=== PATIENT | female | born 1940 | race Caucasian/White ===

== ENCOUNTER 2016-12-18 09:10 | Outpatient (CLI) | payer MEDICARE ==
--- NOTE | 2016-12-18 10:46 | ULT ---
LEFT BREAST ULTRASOUND LEFT DIAGNOSTIC MAMMOGRAM: Date: 12/18/16 HISTORY: 76-year-old female with asymmetry seen in the left breast. COMPARISON: 06/02/16, 05/19/16, 06/12/14. FINDINGS: A ML view of the left breast, as well as spot compression views of the left breast in MLO and CC pro jections were performed. The focal asymmetry in the upper outer aspect of the left breast is unchang ed in size. Vascular calcifications are seen. Scattered fibroglandular breast tissue is present. The re are no suspicious clusters of microcalcifications or areas of architectural distortion. Interpretation of this mammogram was performed with the assistance of computer-aided detection. Targeted ultrasound of the left breast again shows an anechoic, well circumscribed structure in the 2 o'clock position measuring approximately 6.0 mm in greatest dimension. This corresponds to the zuleima mographic abnormality and likely represents a cyst. IMPRESSION: BIRADS 2: Benign Finding(s) Annual screening mammography is recommended. The patient is due for annual mammography in April 24. POS: [facility]
== END 2016-12-18 09:11 | disposition home or self-care (01) ==
LOC: MAMMO 09:10
PROVIDERS: ATTEND Internal Medicine Geriatric Medicine
DX: R92.8 Other abnormal and inconclusive findings on diagnostic imaging of breast (principal)
CPT/HCPCS: 76642; G0206

== ENCOUNTER 2017-01-05 07:38 | Outpatient (CLI) | payer MEDICARE ==
--- NOTE | 2017-01-05 16:52 | NM ---
GASTRIC EMPTYING STUDY 01/05/17 HISTORY: Nausea, vomiting, gas and bloating. RADIOPHARMACEUTICAL: 2 millicuries technetium 99m sulfur colloid mixed in scrambled egg, p.o. FINDINGS: Sequential anterior imaging is obtained. There is 11% emptying at 30 minutes, 45% emptying at 60 min utes, 45% emptying at 2 hours, and 99% emptying at 3 hours. The T is 72 minutes. IMPRESSION: There is 45% emptying at 60 minutes and 2 hours with approximately 99% emptying at 3 hours. POS: [facility]
== END 2017-01-05 07:39 | disposition home or self-care (01) ==
LOC: NM 07:38
PROVIDERS: ATTEND Internal Medicine
DX: K29.60 Other gastritis without bleeding (principal); R10.13 Epigastric pain; R11.0 Nausea
CPT/HCPCS: 78264; A9541

== ENCOUNTER 2018-03-12 07:00 | Day surgery (SDC) | payer MEDICARE ==
[2018-03-11 12:04] VITALS: BMI 32.6
[~2018-03-12 07:00] MED LIST: Prevnar 13-Val Conj/PF 0.5 ML SYRINGE IM ONE
[2018-03-12 08:08] VITALS: BP 123/68; TEMP 98.2
--- NOTE | 2018-03-12 11:42 | RAD ---
LUMBAR MYELOGRAM: HISTORY: Lumbar radiculopathy. COMPARISON: None. EXPOSURE: 0.4 minutes 525.1 Gy per m2. FINDINGS: Initial repair tech lumbar spine radiograph demonstrates five lumbar type vertebral bodies. Of note, the L 5 vertebral body is a transitional vertebral body. In the neutral lateral position, there is 4 mm of anterolisthesis of L4 upon L5. Upon flexion, there is 9 mm of anterolisthesis of L4 upon L5. Upon extension, there is 7 mm of anterolisthesis of L4 upon L5. There is a chronic moderate compression fracture at L1. Mild retropulsion. Successful lumbar myelogram. A total of 9 mL of Isovue-M 200 contrast was administered intrathecally . The patient tolerated the procedure well. No immediate or post procedure complications. TECHNIQUE: Consent obtained to perform a lumbar puncture for intrathecal contrast administration. The patient's back was evaluated. The L3-L4 level was deemed appropriate. The skin was prepped and draped in a s terile fashion. Lidocaine 1% buffered with sodium bicarbonate was used for local anesthesia. Under fluoroscopic guidance, a 22 gauge spinal needle was advanced into the CSF space. The inner stylet wa s removed. There was prompt flow of clear CSF to the hub of the needle. Via a short tubing catheter , a total of 10 mL of Isovue-M 200 contrast was administered intrathecally. The patient tolerated th e procedure well. No immediate or post procedure complications. IMPRESSION: Successful lumbar puncture for lumbar myelogram. POS: [facility]
--- NOTE | 2018-03-12 12:20 | CT ---
POST MYELOGRAM LUMBAR SPINE CT: HISTORY: Lumbar radiculopathy. COMPARISON: None. TECHNIQUE: A post myelogram lumbar spine CT is performed in the axial plane. Reformatted images are submitted f or interpretation. FINDINGS: There is a transitional vertebra at the lumbosacral junction, which will be labeled as the L5 vertebr al body. There is pseudoarthrosis of the left and right transverse process at L5 with the sacral ala . There is a chronic mild compression fracture involving L1 with associated minimal retropulsion. V acuum disk phenomenon at T12-L1, L1-L2, and L2-L3. There is 3.6 mm of retrolisthesis of L1 upon L2. There is 5.7 mm of anterolisthesis of L4 upon L5. Symmetric attenuation of the psoas muscles. Intrinsic hyperdensity involving the right renal cortex, exophytic in nature, measuring 8 mm, is noted. A complex or hemorrhagic renal cortical cyst is favo red. No evidence of obstructive uropathy. The conus medullaris terminates at the T12-L1 disk space level. T11-T12/T12-L1: No high-grade central canal stenosis or high-grade neural foraminal narrowing. L1 VERTEBRAL BODY: Minimal central canal stenosis due to retropulsion. L1-L2: Vacuum disk phenomenon. No significant central canal stenosis. Mild bilateral foraminal oscar rowing. L2-L3: Vacuum disk phenomenon. No significant posterior disk abnormality. No significant central c anal stenosis. Mild bilateral foraminal narrowing. L3-L4: No significant posterior disk abnormality. There is a left subarticular disk bulge that abut s the thecal sac and minimally displaces the traversing left L4 nerve root. No significant central c anal stenosis. Mild bilateral foraminal narrowing. L4-L5: There appears to be ligamentum flavum thickening, facet hypertrophy, and a generalized disk b ulge. There is resultant mild central canal stenosis. Mild to moderate bilateral neural foraminal n arrowing. L5-S1: No high-grade central canal stenosis or high-grade foraminal narrowing. Tarlov cyst along the left S2 nerve root is suspected and incompletely evaluated. IMPRESSION: 1. Degenerative changes of the lumbar spine as above. Varying degrees of central canal stenosis and foraminal narrowing, as above. 2. Disk material abuts but not completely obscure the traversing left L4 nerve root. 3. Mild chronic compression fracture at L1. 4. 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 POS: [facility]
== END 2018-03-12 09:45 | disposition home or self-care (01) ==
LOC: RAD 07:00
PROVIDERS: ATTEND Neurological Surgery
PROC: B01B1ZZ Fluoroscopy of Spinal Cord using Low Osmolar Contrast (ICD-10-PCS; principal; 2018-03-12)
DX: M51.16 Intervertebral disc disorders with radiculopathy, lumbar region (principal); M48.061 Spinal stenosis, lumbar region without neurogenic claudication; S32.018A Other fracture of first lumbar vertebra, initial encounter for closed fracture; I25.10 Atherosclerotic heart disease of native coronary artery without angina pectoris; I48.91 Unspecified atrial fibrillation; E11.9 Type 2 diabetes mellitus without complications; I10 Essential (primary) hypertension; E78.5 Hyperlipidemia, unspecified; Z79.899 Other long term (current) drug therapy; Z79.02 Long term (current) use of antithrombotics/antiplatelets; Z79.82 Long term (current) use of aspirin; Z88.0 Allergy status to penicillin; Z88.2 Allergy status to sulfonamides; Z88.5 Allergy status to narcotic agent; Z88.8 Allergy status to other drugs, medicaments and biological substances
CPT/HCPCS: 62304; 72100; 72132

== ENCOUNTER 2018-04-19 05:55 | Inpatient (IN) | payer MEDICARE ==
[2018-04-16 12:54] VITALS: BMI 34.4
[2018-04-19] MEDS ORDERED: Levofloxacin 500 mg/D5W 100 ml Premix Bag ONE (06:28)
[2018-04-19] MEDS ORDERED: Clindamycin/D5W 900 mg/50 ml Premix Bag ONE (06:28)
[2018-04-19] MEDS ORDERED: Fentanyl 100 MCG/2 ML VIAL ONE ×4 (06:30→12:14)
[2018-04-19] MEDS ORDERED: Sodium Chloride 0.9% 0 ML ONE (06:31)
[2018-04-19] MEDS ORDERED: Sodium Chloride 0.9% 10 ML ONE (06:32)
[2018-04-19 06:43] LABS: Mean Corpuscular HGB CONC 33.2 g/dL (32.0-36.0); Mean Corpuscular Hemoglobin 30.1 pg (27.0-31.0); Mean Corpuscular Volume 90.7 fL (78.0-98.0); Platelet Count 185 thou/uL (130-400); RBC Distribution Width 12.2 % (11.5-14.5); Red Blood Cell (RBC) Count 4.33 mill/uL (4.20-5.40)
[2018-04-19 07:03] LABS: Anion Gap 12 mmol/L (10-20); BUN (Urea Nitrogen) 21 mg/dL (9.8-20.1); Calc. Creatinine Clearance 65 mL/min (70-130); Calcium 9.6 mg/dL (7.8-10.44); Carbon Dioxide 28 mmol/L (23-31); Chloride 103 mmol/L (98-107); Estimated GFR-MDRD 46; Glucose 175 mg/dL (83-110); Potassium 3.9 mmol/L (3.5-5.1); Sodium 139 mmol/L (136-145)
[2018-04-19] MEDS ORDERED: Promethazine HCl 25 MG/ML VIAL SLOW IVP PRN (09:03)
[2018-04-19] MEDS ORDERED: Ondansetron HCl/PF 4 MG/2 ML Vial IVP PRN (09:03)
[2018-04-19] MEDS ORDERED: Promethazine HCl 25 MG/ML VIAL IM PRN ×2 (09:03→16:48)
--- NOTE | 2018-04-19 10:18 | OP ---
DATE OF PROCEDURE: 04/19/2018 ASSISTANT STATISTICIAN: Brian Fraser PA-C PROCEDURES PERFORMED: L4-L5 laminectomy, L4-L5 posterolateral arthrodesis, pedicle screw instrumentation, demineralized bone matrix, local morselized autograft, posterolateral arthrodesis, L4-L5. DESCRIPTION OF PROCEDURE: The patient was brought to the operating room and intubated. She was rolled in a prone position on gel-filled chest rolls. Incision was made exposing L4-L5 bilateral and the level was confirmed by x-ray for modified lateral facetectomy and laminectomy. We placed pedicle screws bilaterally at L4 and L5 using lateral fluoroscopic guidance and position was confirmed with x-ray. Maksim was secured between the screws, connected by nuts, which were finally tightened. The wound was then extensively irrigated and maximum hemostasis was secured. Combination of demineralized bone matrix and local morselized autograft was laid over the lamina on posterolateral surfaces for the purpose of arthrodesis. Vancomycin powder was applied and the wound was then closed in anatomic layers. Job ID: [id number]
[2018-04-19] MEDS ORDERED: ePHEDrine/0.9% NaCl/PF SYRINGE 50 mg/10 ml ONE (13:38)
[2018-04-19] MEDS ORDERED: PROPOFOL 200 MG/20 ML VIAL ONE (13:38)
[2018-04-19] MEDS ORDERED: Rocuronium Bromide 10 MG/ML (10ML VIAL) ONE (13:38)
[2018-04-19] MEDS ORDERED: Glycopyrrolate 0.2 MG/ML 5 ML SYRINGE ONE (13:38)
[2018-04-19] MEDS ORDERED: Dexamethasone 20 MG/5 ML VIAL ONE (13:38)
[2018-04-19] MEDS ORDERED: Lidocaine 1% PF 5 ML VIAL ONE (13:38)
[2018-04-19] MEDS ORDERED: PHENYLEPHRINE-NS 100 MCG/ML 10 ML SYRINGE ONE (13:38)
[2018-04-19] MEDS ORDERED: Ondansetron PF 4 MG/2 ML Vial ONE (13:38)
[2018-04-19] MEDS ORDERED: Pentazocine HCl/Naloxone HCl 50/0.5 MG TAB PO PRN (16:20)
[2018-04-19] MEDS: Cyclobenzaprine 10 MG TAB PO PRN (16:34)
[2018-04-19] MEDS ORDERED: Milk Of Magnesia 30 ML UDCUP PO PRN (16:48)
[2018-04-19] MEDS ORDERED: tiZANidine HCl 4 MG TAB PO PRN (16:48)
[2018-04-19] MEDS ORDERED: Promethazine 25 MG TAB PO PRN (16:48)
[2018-04-19] MEDS ORDERED: Promethazine HCl 12.5 MG SUPP PR PRN (16:48)
[2018-04-19] MEDS ORDERED: diphenhydrAMINE 50 MG/ML VIAL IVP PRN (16:48)
[2018-04-19] MEDS ORDERED: Bisacodyl 10 MG SUPP PR PRN (16:48)
[2018-04-19] MEDS ORDERED: diphenhydrAMINE 25 MG CAP PO PRN (16:48)
[2018-04-19] MEDS ORDERED: Morphine 4 MG/ML VIAL SLOW IVP PRN ×2 (16:48→17:01)
[2018-04-19] MEDS ORDERED: Ondansetron PF 4 MG/2 ML Vial IVP PRN (16:49)
[2018-04-19] MEDS ORDERED: HYDROcodone/Acetaminophen 10/325 mg Tablet PO PRN ×2 (17:02)
[2018-04-19] MEDS: Clindamycin/D5W 900 MG in Premix Bag 1 BAG IVPB SCH (17:32)
[2018-04-19] MEDS: Sodium Chloride 0.9% 1,000 ML IV SCH (18:01)
[2018-04-19] MEDS: diphenhydrAMINE 50 MG CAP PO PRN (18:27)
[2018-04-19] MEDS: Pentazocine HCl/Naloxone HCl 50/0.5 MG TAB PO PRN (18:50)
[2018-04-19] MEDS ORDERED: Dextrose 50% Abboject 50 ML SYRINGE SLOW IVP PRN (19:05)
[2018-04-19] MEDS ORDERED: Dextrose 5% in Water 1,000 ML IV PRN (19:05)
[2018-04-19] MEDS ORDERED: Gabapentin 300 MG CAP PO SCH (21:00)
[2018-04-19] MEDS: FLUoxetine HCl 20 MG CAP PO SCH (21:21)
[2018-04-19] MEDS: Famotidine 20 MG TAB PO SCH (21:21)
[2018-04-19] MEDS: Carvedilol 25 MG TAB PO SCH (21:21)
[2018-04-19] MEDS: Pramipexole Di-HCl 0.25 MG TAB PO SCH (21:21)
[2018-04-19] MEDS: Gabapentin 300 MG CAP PO SCH (21:21)
[2018-04-19] MEDS: Lisinopril 10 MG TAB PO SCH (21:22)
[2018-04-19] MEDS: HumaLOG 300 UNITS/3 ML VIAL SC PRN (21:32)
[2018-04-20] MEDS: Clindamycin/D5W 900 MG in Premix Bag 1 BAG IVPB SCH (01:24)
--- NOTE | 2018-04-20 01:31 | CON ---
DATE OF CONSULTATION: 04/19/2018 PRIMARY CARE PHYSICIAN: Dr. Naveed Edgar. PRIMARY TEAM: Neurosurgery, Dr. Rios. REASON FOR CONSULTATION: Medical management. HISTORY OF PRESENT ILLNESS: This is a 77-year-old white female with a known history of coronary artery disease, hypertension, mild aortic stenosis, who has been having worsening symptoms from her lumbar spine disease and Dr. Rios had her cleared cardiologically with a catheterization by Dr. Mariano and then brought her in today and did a decompressive surgery on her lumbar spine. She is doing well postoperatively, does have some pain and has some difficulties with most pain medications just can only take Talwin with them, has taken lots of Benadryl with it, but she does say she is able to move her legs now better than before the surgery. PAST MEDICAL HISTORY: 1. Coronary artery disease, 3-vessel disease. 2. Hypertension. 3. Sick sinus syndrome status post pacemaker. 4. Mild aortic stenosis. 5. Left bundle branch block and first-degree AV block. 6. Sleep apnea. 7. Osteoarthritis. 8. Diabetes mellitus, type 2. 9. Obesity. PAST PSYCHIATRIC HISTORY: Anxiety and depression. PAST SURGICAL HISTORY: 1. Hysterectomy. 2. Abdominal adhesiolysis. 3. Cataract removal. 4. Pacemaker placement in 2012. 5. Multiple coronary caths with mid LAD stents x2 with angioplasty of in-stent restenosis, last in 2017. 6. Knee surgery. SOCIAL HISTORY: The patient is . She is employed in the [employer]. No tobacco, alcohol, or illicit drug use. FAMILY HISTORY: Father at age 65 of a heart attack and mother at age 87 of organ failure. ALLERGIES: 1. CODEINE AND MOST OPIATES WHICH CAUSE SEVERE ITCHING. 2. PENICILLINS. 3. SULFONAMIDES. 4. FELODIPINE CAUSES SWELLING. 5. BRILINTA CAUSES SHORTNESS OF BREATH. 6. LIZZETTE INHIBITORS. 7. TRAMADOL. CURRENT MEDICATIONS: 1. Multivitamin daily. 2. Talwin NX one tablet every 8 hours as needed for pain. 3. Benadryl 50 mg every 4-6 hours as needed for itching from her Talwin. 4. Potassium chloride 10 mEq daily. 5. Pramipexole 0.25 mg at night. 6. Aspirin 325 mg daily. 7. Combigan eyedrops 10 mL ophthalmic daily. 8. Plavix 75 mg daily. 9. Lisinopril 10 mg twice a day. The patient reports that even though this is an LIZZETTE inhibitor, it seems to work fine for her, uncertain what the reaction was to other LIZZETTE inhibitors. 10. Amlodipine 5 mg daily. 11. Carvedilol 25 mg twice a day. 12. Prozac 40 mg at night. 13. Furosemide 20 mg daily. 14. Neurontin 300 mg 3 times a day. 15. Imdur ER 45 mg daily. 16. Cyclobenzaprine 5 mg 3 times a day as needed. REVIEW OF SYSTEMS: CONSTITUTIONAL: No fevers, no chills. No weight changes. EYES: No double vision or blurred vision. ENT: No congestion or sore throat. She does have some intermittent sinus drainage. CARDIOVASCULAR: No chest pain or palpitations. PULMONARY: She has intermittent cough from the drainage at the back of her throat, but no wheezing. No chest tightness. No trouble breathing. GASTROINTESTINAL: No abdominal pain. No nausea or vomiting. No diarrhea or constipation. GENITOURINARY: No dysuria or hematuria. MUSCULOSKELETAL: The patient has low back pain with pain shooting down her right leg as per HPI. No other musculoskeletal complaints. She has noted some left lower extremity swelling over the last few months since her back got real bad, but this has had negative ultrasounds for any sort of clot. SKIN: No rashes or other lesions that she has noticed. NEUROLOGIC: No numbness, tingling, or focal weakness. PHYSICAL EXAMINATION: VITAL SIGNS: Blood pressure 160/76, pulse 76, respirations 18, temperature 98.1, O2 saturation 96% on room air. GENERAL: This is a well-developed, obese white female, in no acute distress. HEENT: Pupils are equal, round, and reactive to light. Oropharynx is clear without lesions, erythema, or exudate. NECK: Supple. No lymphadenopathy. No thyroid nodules or enlargement. No JVD. HEART: Regular rate and rhythm. No murmurs, rubs, or gallops. LUNGS: Clear to auscultation bilaterally. No wheezes, crackles, or rhonchi. ABDOMEN: Soft, obese, nontender to palpation. Normoactive bowel sounds. No hepatosplenomegaly or other masses. EXTREMITIES: I did not appreciate any clubbing, cyanosis, or edema on my exam. She has good peripheral pulses. SKIN: No rashes or other lesions noted. NEUROLOGIC: She has intact sensation and movement in all extremities. No facial droop. PSYCHIATRIC: Alert, orient x3. Normal mood and affect. LABORATORY DATA: CBC within normal limits. Basic metabolic panel was notable for creatinine of 1.15 which is up from her most recent one we have before that was from 2017 when it was normal. BUN is elevated at 21. ASSESSMENT: 1. Symptomatic lumbar spine disease, status post decompressive surgery by Dr. Rios. 2. Hypertension. Currently well elevated possibly from pain. We will resume patient's home medications. We will give p.r.n. blood pressure medicine as needed. 3. Coronary artery disease. We are holding the aspirin and Plavix for now. We will resume when okay with Neurosurgery. 4. Gastrointestinal prophylaxis. We will put the patient on Pepcid twice a day. 5. Itching from Talwin. We will continue Benadryl. We may have to give a little more than often than q.6 hours as currently written, but we will wait and see how she does. 6. Deep venous thrombosis prophylaxis. We will put the patient on SCDs, bilateral lower extremities. 7. Diabetes mellitus, type 2. We will check fingerstick blood sugars before meals and at bedtime with low insulin sliding scale and give her a diabetic diet. 8. Code status. I did discuss this with the patient. She is a full code. Should she be incapacitated, she stated that her daughter would be her medical decision maker. Her daughter's name is Harry Wu. Job ID: [id number]
[2018-04-20] MEDS: Cyclobenzaprine 10 MG TAB PO PRN ×3 (03:51→21:45)
[2018-04-20] MEDS: Pentazocine HCl/Naloxone HCl 50/0.5 MG TAB PO PRN ×3 (03:52→21:45)
[2018-04-20] MEDS: Sodium Chloride 0.9% 1,000 ML IV SCH ×2 (06:00→18:48)
[2018-04-20] MEDS: HumaLOG 300 UNITS/3 ML VIAL SC PRN ×4 (06:06→21:45)
--- NOTE | 2018-04-20 07:20 | PRG ---
DATE OF SERVICE: 04/20/2018 SUBJECTIVE: The patient is a 77-year-old female, on postoperative day #1, status post L4-5 decompression and fusion. Following surgery, she was transitioned to the Med/Surg floor, where her pain has been well controlled with p.o. medications, she is tolerating regular diet, and she is voiding appropriately. She has been up ambulating short distances to the bathroom. She did have some mild amount of bloody drainage through her initial dressing, which required replacement by the nursing staff. The patient is awake, alert, and sitting up this morning. She appears comfortable. She has free active range of motion of all extremities. No focal motor weakness or reflex asymmetry. She has a negative straight leg raise. Her new dressing is dry, and there is only a small amount of bloody drainage on the pad. The patient appears to be doing well postoperatively. We will have her work with Physical Therapy and Occupational Therapy today. Depending on her progress, she may require inpatient rehabilitation versus home with Home Health in the future. Job ID: [id number]
--- NOTE | 2018-04-20 08:10 | PDOC.PN ---
- Subjective Encounter Start Date: 04/20/18 Encounter Start Time: 09:50 Subjective: No Chest pain. No SOB. Up with PT. - Objective MAR Reviewed: Yes Vital Signs & Weight: Vital Signs (12 hours) Temp Pulse Resp BP BP Pulse Ox 04/20/18 07:31 98.5 F 78 18 160/71 H 94 L 04/20/18 03:52 98.6 F 77 16 137/71 95 04/19/18 23:30 99.8 F H 88 20 150/72 H 95 04/19/18 21:22 148/74 H 04/19/18 21:21 95 Weight Weight 220 lb I&O: 04/19/18 04/20/18 04/21/18 06:59 06:59 06:59 Intake Total 580 Balance 580 Result Diagrams: 04/19/18 06:36 04/19/18 06:36 Additional Labs: Accuchecks 04/20/18 04/19/18 06:03 21:06 POC Glucose 209 H 303 H Phys Exam - Physical Examination Constitutional: NAD HEENT: moist MMs Respiratory: no wheezing, no rales, no rhonchi Cardiovascular: RRR, no significant murmur Gastrointestinal: soft, positive bowel sounds Musculoskeletal: no edema Neurological: non-focal, moves all 4 limbs Psychiatric: normal affect, A&O x 3 Dx/Plan (1) S/P lumbar laminectomy Code(s): Z98.890 - OTHER SPECIFIED POSTPROCEDURAL STATES Status: Acute (2) CAD (coronary artery disease) Code(s): I25.10 - ATHSCL HEART DISEASE OF [place] CORONARY ARTERY W/O ANG PCTRS Status: Chronic Qualifiers: Coronary Disease-Associated Artery/Lesion type: [place] artery (3) DM type 2 (diabetes mellitus, type 2) Status: Chronic Comment: Running a bit high, patient reports BS typically less than 120 at home. (4) HTN (hypertension) Code(s): I10 - ESSENTIAL (PRIMARY) HYPERTENSION Status: Chronic Qualifiers: Hypertension type: essential hypertension Qualified Code(s): I10 - Essential (primary) hypertension Comment: Running a little high - Plan cont current plan of care, PT/OT To rehab vs. home depending on progress with PT * . - Discharge Day Encounter end time: 10:00
[2018-04-20] MEDS: Lisinopril 10 MG TAB PO SCH ×2 (09:13→20:36)
[2018-04-20] MEDS: Gabapentin 300 MG CAP PO SCH ×3 (09:13→20:35)
[2018-04-20] MEDS: Potassium Chloride 10 MEQ TAB PO SCH (09:13)
[2018-04-20] MEDS: Famotidine 20 MG TAB PO SCH ×2 (09:13→20:35)
[2018-04-20] MEDS: Multivit, Therapeutic 1 TAB PO SCH (09:13)
[2018-04-20] MEDS: Carvedilol 25 MG TAB PO SCH ×2 (09:14→20:35)
[2018-04-20] MEDS: Amlodipine 5 MG TAB PO SCH (09:14)
[2018-04-20] MEDS: Furosemide 20 MG TAB PO SCH (09:14)
[2018-04-20] MEDS: Timolol 0.5% Ophth Soln 5 ml Bottle EA EYE SCH (09:14)
[2018-04-20] MEDS: Brimonidine Tartrate 0.2% Ophth Soln 5 ml Bottle EA EYE SCH (09:15)
[2018-04-20] MEDS: Ketorolac Tromethamine 30 MG/ML VIAL IVP PRN ×2 (10:34→17:50)
--- NOTE | 2018-04-20 12:53 | PRG ---
DATE OF SERVICE: 04/20/2018 Ms. Madrid is doing quite well postoperatively. She has a substantial improvement in her leg pain. Her postoperative back pain is relatively manageable. She is working on progressive mobilization and working with physical therapy. Rehab screen has been ordered. Job ID: [id number]
[2018-04-20] MEDS: diphenhydrAMINE 50 MG CAP PO PRN ×2 (13:26→21:45)
[2018-04-20] MEDS: Clindamycin 150 MG CAP PO SCH ×2 (17:50→23:28)
[2018-04-20] MEDS: Pramipexole Di-HCl 0.25 MG TAB PO SCH (20:35)
[2018-04-20] MEDS: FLUoxetine HCl 20 MG CAP PO SCH (20:35)
[2018-04-21] MEDS: Clindamycin 150 MG CAP PO SCH ×4 (05:17→23:09)
[2018-04-21] MEDS: HumaLOG 300 UNITS/3 ML VIAL SC PRN ×3 (05:31→18:11)
[2018-04-21 06:18] LABS: #Eosinphils 0.1 thou/uL (0.0-0.7); #Lymphocytes 1.6 thou/uL (1.20-3.40); #Monocytes 1.1 thou/uL (0.11-0.59); #Neutrophils 6.4 thou/uL (1.40-6.50); %Basophils 0.5 % (0.0-1.0); %Eosinophils 1.5 % (0.0-10.0); %Lymphocytes 16.8 % (21.0-51.0); %Monocytes 12.1 % (0.0-10.0); %Neutrophils 69.2 % (42.0-75.0); Hemoglobin 11.3 g/dL (12.0-16.0); Mean Corpuscular HGB CONC 32.7 g/dL (32.0-36.0); Mean Corpuscular Hemoglobin 30.2 pg (27.0-31.0); Mean Corpuscular Volume 92.5 fL (78.0-98.0); Mean Platelet Volume 7.7 fL (7.4-10.4); Platelet Count 149 thou/uL (130-400); RBC Distribution Width 12.3 % (11.5-14.5); Red Blood Cell (RBC) Count 3.74 mill/uL (4.20-5.40); White Blood Cell (WBC) Count 9.2 thou/uL (4.8-10.8)
[2018-04-21 06:37] LABS: Anion Gap 15 mmol/L (10-20); BUN (Urea Nitrogen) 23 mg/dL (9.8-20.1); Calc. Creatinine Clearance 59 mL/min (70-130); Calcium 8.9 mg/dL (7.8-10.44); Carbon Dioxide 26 mmol/L (23-31); Chloride 99 mmol/L (98-107); Estimated GFR-MDRD 41; Glucose 172 mg/dL (83-110); Potassium 3.8 mmol/L (3.5-5.1); Sodium 136 mmol/L (136-145)
--- NOTE | 2018-04-21 07:51 | PDOC.PN ---
- Subjective Encounter Start Date: 04/21/18 Encounter Start Time: 10:00 Subjective: Back sore, but pain improved and leg pain resolved. No other -: complaints. - Objective MAR Reviewed: Yes Vital Signs & Weight: Vital Signs (12 hours) Temp Pulse Resp BP BP Pulse Ox 04/21/18 04:40 100 F H 76 17 145/66 H 94 L 04/21/18 00:22 101 F H 77 18 108/57 L 94 L 04/20/18 20:36 114/63 04/20/18 20:00 99.1 F 69 19 114/63 94 L Weight Weight 220 lb I&O: 04/20/18 04/21/18 04/22/18 06:59 06:59 06:59 Intake Total 580 410 Balance 580 410 Result Diagrams: 04/21/18 05:23 04/21/18 05:23 Additional Labs: Accuchecks 04/21/18 04/20/18 04/20/18 05:24 20:52 15:23 POC Glucose 189 H 251 H 209 H 04/20/18 11:31 POC Glucose 234 H Phys Exam - Physical Examination Constitutional: NAD HEENT: moist MMs Respiratory: no wheezing, no rales, no rhonchi Cardiovascular: RRR Gastrointestinal: soft, positive bowel sounds Musculoskeletal: no edema Neurological: non-focal, moves all 4 limbs Psychiatric: normal affect, A&O x 3 Dx/Plan (1) S/P lumbar laminectomy Code(s): Z98.890 - OTHER SPECIFIED POSTPROCEDURAL STATES Status: Acute (2) CAD (coronary artery disease) Code(s): I25.10 - ATHSCL HEART DISEASE OF [place] CORONARY ARTERY W/O ANG PCTRS Status: Chronic Qualifiers: Coronary Disease-Associated Artery/Lesion type: [place] artery (3) DM type 2 (diabetes mellitus, type 2) Status: Chronic Comment: Running a bit high, patient reports BS typically less than 120 at home. (4) HTN (hypertension) Code(s): I10 - ESSENTIAL (PRIMARY) HYPERTENSION Status: Chronic Qualifiers: Hypertension type: essential hypertension Qualified Code(s): I10 - Essential (primary) hypertension Comment: Running a little high (5) Chronic renal failure, stage 2 (mild) Code(s): N18.2 - CHRONIC KIDNEY DISEASE, STAGE 2 (MILD) Status: Acute Comment: a little bump in creatinine post op, will follow, encourage po fluids - Plan cont current plan of care, PT/OT to rehab * . - Discharge Day Encounter end time: 10:10
[2018-04-21] MEDS: Multivit, Therapeutic 1 TAB PO SCH (08:22)
[2018-04-21] MEDS: Carvedilol 25 MG TAB PO SCH ×2 (08:22→20:26)
[2018-04-21] MEDS: Gabapentin 300 MG CAP PO SCH ×3 (08:22→20:26)
[2018-04-21] MEDS: Furosemide 20 MG TAB PO SCH (08:23)
[2018-04-21] MEDS: Amlodipine 5 MG TAB PO SCH (08:23)
[2018-04-21] MEDS: Brimonidine Tartrate 0.2% Ophth Soln 5 ml Bottle EA EYE SCH (08:23)
[2018-04-21] MEDS: Lisinopril 10 MG TAB PO SCH ×2 (08:23→20:26)
[2018-04-21] MEDS: Famotidine 20 MG TAB PO SCH ×2 (08:23→20:26)
[2018-04-21] MEDS: Potassium Chloride 10 MEQ TAB PO SCH (08:23)
[2018-04-21] MEDS: Timolol 0.5% Ophth Soln 5 ml Bottle EA EYE SCH (08:24)
[2018-04-21] MEDS: Cyclobenzaprine 10 MG TAB PO PRN ×2 (08:25→18:10)
[2018-04-21] MEDS: Sodium Chloride 0.9% 1,000 ML IV SCH ×2 (08:36→23:25)
--- NOTE | 2018-04-21 09:54 | RAD ---
PA AND LATERAL CHEST: History: Fever, cough. Comparison: 09-29-07 FINDINGS: Heart size is within normal limits. Pacemaker is present. Linear scarring in the right upper lobe. Th ere is elevation of the right hemidiaphragm. No focal infiltrative process. IMPRESSION: No active intrathoracic disease. POS: [facility]
[2018-04-21 11:43] LABS: Bilirubin Negative (Negative); Blood, Urine Trace (Negative); Clarity CLEAR (Clear); Glucose, Urine (Dipstick) Negative (Negative); Leukocyte Trace (Negative); Nitrite Negative (Negative); Protein, Urine (Dipstick) Negative (Neg-Trace); Specific Gravity, Urine 1.014 (1.002-1.036); Urobilinogen 0.2 mg/dL (0.2-1.0); pH, Urine 5.5 (5.0-9.0)
[2018-04-21 11:46] LABS: Bacteria/HPF None Seen HPF (None Seen); Hyaline Casts/LPF 0-3 HYALINE CAST LPF (0-3 Hyaline); Pathc Cast-AUWi Flag 0.14 (0-2.49); RBC/HPF 0-3 HPF (0-3); Squamous Epithelial 0-3 HPF (0-3)
[2018-04-21 11:47] LABS: Yeast-AUWi Flag 36.9 (0-25.0)
[2018-04-21 12:07] LABS: Yeast-All Forms Rare HPF (None Seen)
[2018-04-21] MEDS: Mag-Al 1200 mg/1200 mg/30 ML UDCUP PO PRN ×2 (12:16→18:32)
--- NOTE | 2018-04-21 12:27 | ULT ---
BILATERAL LOWER EXTREMITY VENOUS DOPPLER ULTRASOUND: Date: 04/21/18 HISTORY: Two days post laminectomy. Immobility. TECHNIQUE: Lilly scale ultrasound with color flow and spectral Doppler imaging of the deep venous systems of the lower extremities was performed bilaterally. FINDINGS: There is good flow, compression, and augmentation noted in the common femoral, femoral, deep femoral, popliteal, posterior tibial, and greater saphenous veins on either side. IMPRESSION: No evidence of deep venous thrombosis in either lower extremity. POS: [facility]
[2018-04-21] MEDS: Ketorolac Tromethamine 30 MG/ML VIAL IVP PRN (13:58)
[2018-04-21] MEDS: Pramipexole Di-HCl 0.25 MG TAB PO SCH (20:26)
[2018-04-21] MEDS: FLUoxetine HCl 20 MG CAP PO SCH (20:26)
[2018-04-22] MEDS: Clindamycin 150 MG CAP PO SCH ×2 (05:08→11:45)
[2018-04-22] MEDS: Carvedilol 25 MG TAB PO SCH (08:45)
[2018-04-22] MEDS: Multivit, Therapeutic 1 TAB PO SCH (08:46)
[2018-04-22] MEDS: Lisinopril 10 MG TAB PO SCH (08:47)
[2018-04-22] MEDS: Potassium Chloride 10 MEQ TAB PO SCH (08:47)
[2018-04-22] MEDS: Gabapentin 300 MG CAP PO SCH (08:47)
[2018-04-22] MEDS: Furosemide 20 MG TAB PO SCH (08:48)
[2018-04-22] MEDS: Amlodipine 5 MG TAB PO SCH (08:48)
[2018-04-22] MEDS: Famotidine 20 MG TAB PO SCH (08:48)
[2018-04-22] MEDS: Brimonidine Tartrate 0.2% Ophth Soln 5 ml Bottle EA EYE SCH (08:49)
[2018-04-22] MEDS: Timolol 0.5% Ophth Soln 5 ml Bottle EA EYE SCH (08:49)
[2018-04-22] MEDS: Cyclobenzaprine 10 MG TAB PO PRN (09:20)
--- NOTE | 2018-04-22 09:27 | PDOC.PN ---
- Subjective Encounter Start Date: 04/22/18 Encounter Start Time: 12:40 Subjective: Patient doing well postop. Ambulating better. Some reflux since -: intubation. - Objective MAR Reviewed: Yes Vital Signs & Weight: Vital Signs (12 hours) Temp Pulse Resp BP BP Pulse Ox 04/22/18 08:49 81 150/64 H 04/22/18 08:48 81 150/64 H 04/22/18 08:47 150/64 H 04/22/18 07:48 100.1 F H 81 16 150/64 H 93 L 04/22/18 04:25 99.1 F 81 20 162/75 H 95 04/22/18 00:14 98.8 F 77 20 149/67 H 94 L Weight Weight 220 lb I&O: 04/21/18 04/22/18 04/23/18 06:59 06:59 06:59 Intake Total 410 510 Balance 410 510 Result Diagrams: 04/21/18 05:23 04/21/18 05:23 Additional Labs: Accuchecks 04/22/18 04/21/18 04/21/18 05:53 21:17 16:18 POC Glucose 189 H 180 H 198 H Phys Exam - Physical Examination Constitutional: NAD HEENT: moist MMs Respiratory: no wheezing, no rales, no rhonchi Cardiovascular: RRR, no significant murmur Gastrointestinal: soft, non-tender, positive bowel sounds Neurological: non-focal, moves all 4 limbs Psychiatric: normal affect, A&O x 3 Dx/Plan (1) S/P lumbar laminectomy Code(s): Z98.890 - OTHER SPECIFIED POSTPROCEDURAL STATES Status: Acute (2) CAD (coronary artery disease) Code(s): I25.10 - ATHSCL HEART DISEASE OF [place] CORONARY ARTERY W/O ANG PCTRS Status: Chronic Qualifiers: Coronary Disease-Associated Artery/Lesion type: [place] artery (3) DM type 2 (diabetes mellitus, type 2) Status: Chronic Comment: Running a bit high, patient reports BS typically less than 120 at home. (4) HTN (hypertension) Code(s): I10 - ESSENTIAL (PRIMARY) HYPERTENSION Status: Chronic Qualifiers: Hypertension type: essential hypertension Qualified Code(s): I10 - Essential (primary) hypertension Comment: Running a little high, recommend f/u with PCP and increase meds if still running high after finishes rehab (5) Chronic renal failure, stage 2 (mild) Code(s): N18.2 - CHRONIC KIDNEY DISEASE, STAGE 2 (MILD) Status: Acute Comment: a little bump in creatinine post op, encourage po fluids (6) Acid reflux Code(s): K21.9 - GASTRO-ESOPHAGEAL REFLUX DISEASE WITHOUT ESOPHAGITIS Status: Acute Comment: switch to protonix, give for 2 weeks - Plan cont current plan of care, PT/OT to rehab today * . - Discharge Day Encounter end time: 12:50
[2018-04-22 11:18] VITALS: BP 140/75; TEMP 98.8
[2018-04-22] MEDS: HumaLOG 300 UNITS/3 ML VIAL SC PRN (11:45)
[2018-04-22] MEDS: Sodium Chloride 0.9% 1,000 ML IV SCH (11:45)
== END 2018-04-22 13:30 | DRG 460 ==
LOC: SURG A 05:55 → EDSTATUS 11:06 → SURG A 11:49
PROVIDERS: ADMIT Neurological Surgery; ATTEND Neurological Surgery
PROC: 0SG0071 Fusion of Lumbar Vertebral Joint with Autologous Tissue Substitute, Posterior Approach, Posterior Column, Open Approach (ICD-10-PCS; principal; 2018-04-19)
DX: M48.061 Spinal stenosis, lumbar region without neurogenic claudication (principal); M43.16 Spondylolisthesis, lumbar region; M51.36 Other intervertebral disc degeneration, lumbar region; I25.10 Atherosclerotic heart disease of native coronary artery without angina pectoris; I48.91 Unspecified atrial fibrillation; E78.5 Hyperlipidemia, unspecified; M19.90 Unspecified osteoarthritis, unspecified site; G47.30 Sleep apnea, unspecified; E66.9 Obesity, unspecified; F41.9 Anxiety disorder, unspecified; F32.9 Major depressive disorder, single episode, unspecified; L29.9 Pruritus, unspecified; E11.22 Type 2 diabetes mellitus with diabetic chronic kidney disease; T40.4X5A Adverse effect of other synthetic narcotics, initial encounter; N18.2 Chronic kidney disease, stage 2 (mild); I12.9 Hypertensive chronic kidney disease with stage 1 through stage 4 chronic kidney disease, or unspecified chronic kidney disease; Z95.0 Presence of cardiac pacemaker; Z90.710 Acquired absence of both cervix and uterus; Z98.49 Cataract extraction status, unspecified eye; Z98.61 Coronary angioplasty status; Z88.0 Allergy status to penicillin; Z88.2 Allergy status to sulfonamides; Z88.5 Allergy status to narcotic agent; Z88.8 Allergy status to other drugs, medicaments and biological substances; Z79.02 Long term (current) use of antithrombotics/antiplatelets; Z79.82 Long term (current) use of aspirin; Z79.899 Other long term (current) drug therapy; Z98.890 Other specified postprocedural states; Z68.34 Body mass index [BMI] 34.0-34.9, adult
CPT/HCPCS: 36415; 36416; 71046; 76000; 80048; 81001; 85025; 85027; 87040; 87086; 93970; C1713; C1768; J0131; J1100; J1885; J1956; J2001; J2405; J2704; J3010; J3370; J3490; Q0163

== ENCOUNTER 2018-05-05 16:09 | Outpatient (CLI) | payer MEDICARE ==
--- NOTE | 2018-05-05 16:25 | RAD ---
TWO VIEWS OF THE LUMBOSACRAL SPINE: Comparison: 03-12-18 History: Back surgery two weeks ago. Low back pain. FINDINGS: Two views lumbosacral spine shows the patient to be status post posterior fusion of L4 and L5 with bi lateral pedicle screws. No perihardware lucency is seen. There is stable grade I anterolisthesis of L 4 on L5. Moderate osteophytes are seen throughout the lumbar spine. There is wedge compression deform ity of the L1 vertebral body, unchanged. IMPRESSION: Post-surgical changes of the lumbar spine without evidence of complication. POS: [facility]
== END 2018-05-05 16:10 | disposition home or self-care (01) ==
LOC: TBSIIMAG 16:09
PROVIDERS: ATTEND Neurological Surgery
DX: M99.83 Other biomechanical lesions of lumbar region (principal); Z98.890 Other specified postprocedural states
CPT/HCPCS: 72100

== ENCOUNTER 2018-06-24 13:21 | Outpatient (CLI) | payer MEDICARE ==
--- NOTE | 2018-06-24 13:35 | RAD ---
FExam: Lumbar spine 2 views HISTORY: Surgery. Follow-up exam. Comparison 04/25/2018 FINDINGS: Stable rightward curvature of the lumbar spine. There are 5 lumbar type vertebral bodies. S table loss of vertebral body height at L1. Stable bilateral transpedicular screws at L4 and L5. No hardware lucency. 3.7 mm of anterolisthesis of L4 upon L5. IMPRESSION: 1. Stable postfusion changes at L4-L5. 2. Stable anterolisthesis of L4 upon L5. 3. Stable loss of vertebral body height at L1.
== END 2018-06-24 13:22 | disposition home or self-care (01) ==
LOC: TBSIIMAG 13:21
PROVIDERS: ATTEND Neurological Surgery
DX: M43.16 Spondylolisthesis, lumbar region (principal); Z98.1 Arthrodesis status
CPT/HCPCS: 72100

== ENCOUNTER 2018-09-01 10:52 | Emergency (ER) | payer MEDICARE ==
[2018-09-01] MEDS ORDERED: Ketorolac Tromethamine 30 MG/ML VIAL ONE (12:53)
== END 2018-09-01 14:19 | disposition home or self-care (01) ==
LOC: ERS 10:52
DX: M54.42 Lumbago with sciatica, left side (principal); F41.9 Anxiety disorder, unspecified; F32.9 Major depressive disorder, single episode, unspecified; E11.9 Type 2 diabetes mellitus without complications; E78.5 Hyperlipidemia, unspecified; I10 Essential (primary) hypertension; Z79.84 Long term (current) use of oral hypoglycemic drugs; Z79.899 Other long term (current) drug therapy
CPT/HCPCS: 96372; J1885

== ENCOUNTER 2018-09-09 15:58 | Outpatient (CLI) | payer MEDICARE ==
--- NOTE | 2018-09-09 16:32 | RAD ---
LUMBAR SPINE TWO VIEWS: 09/09/18 HISTORY: Lumbar radiculopathy. COMPARISON: 06/24/18. FINDINGS: Dextroscoliosis of the lower lumbar spine with postop laminectomy and pedicle screw placement changes at L4-L5 with mild anterolisthesis of L4 on L5. Disc osteophytosis with some vertical height loss o f L1, stable. No significant new process. IMPRESSION: Stable postoperative changes and dextroscoliosis with stable vertical height loss of L1. No significa nt new process. POS: [facility]
== END 2018-09-09 15:59 | disposition home or self-care (01) ==
LOC: TBSIIMAG 15:58
PROVIDERS: ATTEND Neurological Surgery
DX: M54.16 Radiculopathy, lumbar region (principal); M41.86 Other forms of scoliosis, lumbar region; Z98.890 Other specified postprocedural states
CPT/HCPCS: 72100

== ENCOUNTER 2018-09-16 07:32 | Day surgery (SDC) | payer MEDICARE ==
[2018-09-15 12:50] VITALS: BMI 31.9
[2018-09-16 08:06] VITALS: BP 148/70; TEMP 98.6
--- NOTE | 2018-09-16 15:29 | CT ---
CT LUMBAR SPINE WITH CONTRAST: (CT LUMBAR MYELOGRAM) DATE: 09/16/2018 HISTORY: 77-year-old female with low back pain and bilateral lumbar radiculopathy, especially on the left. COMPARISON: 03/12/2018 FINDINGS: Transitional vertebra at lumbosacral junction. For the purposes of this report, the first nonrib-bear ing vertebra (with the old compression fracture) will be designated as L1. L5 is partially sacralized, with complete ankylosis of the dysplastic right transverse process with the right sacral ala, and no articulation between the mildly enlarged left L5 transverse process with the left sacral ala. (Type III A). At least mild lateral curvature. Bridging osteophytes on the right side partially ankylosing the T10, T11, and T12 vertebrae. T11-12: Otherwise normal. T12-L1: Vacuum disc phenomenon. Moderate old compression fracture of L1 with maximum anterior loss of height of approximately 50% or greater. No significant posterior loss of height. Minimal bony retropulsion qualifying this is a mild old burst fracture. No high-grade central spinal canal stenosi s. Moderate right neural foraminal stenosis. No left neural foraminal stenosis. No interval change. Conus medullaris terminates at this level. L1-2: Degenerative retrolisthesis of L1 on L2 results in mild central spinal canal stenosis. Vacuum d isc phenomenon. No significant disc space narrowing. Moderate to severe bilateral neural foraminal stenosis, mostly due to the retrolisthesis. No significant interval change. L2-3: Mild degenerative retrolisthesis of L2 on L3. Vacuum disc phenomenon. Disc space maintained. Mi ld ligamentum flavum thickening and mild to moderate degenerative facet hypertrophy. Moderate bilateral neural foraminal stenosis. Mild to moderate central spinal canal stenosis, which is a new f inding since the prior CT. L3-4: In addition to the previously mentioned small focal left paracentral-lateral calcified disc her niation which was mildly posteriorly displacing the left L4 nerve root near the subarticular zone, there appears to be a new small focal approximately 5 mm soft tissue density suggestive of a small ad ditional disc extrusion with inferior migration, which further posteriorly displaces the left L4 nerve root. (Alternatively, this could be artifact related to this streak artifact from new hardware placement). Overall degree of central spinal canal stenosis is mild to moderate. Mild bilateral neural foraminal stenosis. No high-grade disc space narrowing. L4-5: Again noted is the severe bilateral facet DJD causing grade 1 anterolisthesis of L4 on L5. Mild to moderate bilateral neural foraminal stenosis. No high-grade central spinal canal stenosis. There has been interval placement of new bilateral L4 and L5 pedicle screws. No malpositioning or annette dware loosening identified. No high-grade disc space narrowing. L5-S1: Approximately 1 x 1.5 x 1.5 cm left Tarlov cyst filled with CSF and intrathecal contrast mater ial. No acquired central spinal canal stenosis. Hypoplastic bilateral facet joints. No neural foraminal stenosis. Partial ankylosis between the endplates. IMPRESSION: 1) at the left lateral aspect of the L3-4 spinal canal, there is a questionable new focal extruded an d slightly inferiorly migrated disc herniation impinging on the left L4 nerve root, in addition to the previously described focal calcified disc herniation (there is a possibility that this could be a rtifact related to streak artifact from newly placed hardware, but an actual disc herniation is slightly favored). 2) interval placement of bilateral pedicle screws at L4 and L5. 3) otherwise no interval change in the grade 1 spondylolisthesis at L4-5 due to the severe bilateral facet osteoarthrosis at that level. 4) interval development of mild to moderate central spinal canal stenosis at L2-3. 5) Type IIIa transitional lumbosacral vertebra. 6) prominent left sacral Tarlov cyst..
--- NOTE | 2018-09-16 15:47 | RAD ---
LUMBAR MYELOGRAM: INDICATION: Radiculopathy. TECHNIQUE: Informed consent was obtained. Preprocedure head chef images were performed for guidance purposes. Site overlying the right paramedian [id number] space was marked. The site was prepped and nanci ped in the usual sterile fashion. Buffered 1% lidocaine was administered to the overlying subcutaneous tissues. Under fluoroscopic guidance, a 22-gauge spinal needle was guided down into the thecal sac. There was spontaneous return of normal appearing CSF fluid. Following this 10 mL of Isovue M 200 was injected within the thecal sac. There was fluoroscopic visua lization of internal nerve roots confirming intrathecal location of needle placement. The inner stylette was replaced within the needle and the needle removed. The biopsy site was then cl eansed and bandage. The patient tolerated the injection without difficulty. FINDINGS: Type III a transitional lumbosacral vertebra. Bilateral pedicle screws at L4 and L5 stabilizing a gra de 1 anterolisthesis of L4 on L5. Old compression fracture of L1. Focal kyphosis at T12-L1 related to this old compression fracture. Focal calcified disc herniation protruding into the spinal canal at L3-4. IMPRESSION: 1. Successful lumbar myelogram 2. See separate report of CT lumbar myelogram.
== END 2018-09-16 10:20 | disposition home or self-care (01) ==
LOC: RAD 07:32
PROVIDERS: ATTEND Neurological Surgery
PROC: B02B1ZZ Computerized Tomography (CT Scan) of Spinal Cord using Low Osmolar Contrast (ICD-10-PCS; principal; 2018-09-16)
DX: M51.16 Intervertebral disc disorders with radiculopathy, lumbar region (principal); M47.26 Other spondylosis with radiculopathy, lumbar region; M48.061 Spinal stenosis, lumbar region without neurogenic claudication; M40.205 Unspecified kyphosis, thoracolumbar region; E78.5 Hyperlipidemia, unspecified; E11.9 Type 2 diabetes mellitus without complications; G47.30 Sleep apnea, unspecified; I25.10 Atherosclerotic heart disease of native coronary artery without angina pectoris; I10 Essential (primary) hypertension; K21.9 Gastro-esophageal reflux disease without esophagitis; I44.7 Left bundle-branch block, unspecified; I35.0 Nonrheumatic aortic (valve) stenosis; G47.00 Insomnia, unspecified; Z79.82 Long term (current) use of aspirin; Z79.84 Long term (current) use of oral hypoglycemic drugs; Z79.899 Other long term (current) drug therapy; Z88.0 Allergy status to penicillin; Z88.2 Allergy status to sulfonamides; Z88.5 Allergy status to narcotic agent; Z88.8 Allergy status to other drugs, medicaments and biological substances; Z95.1 Presence of aortocoronary bypass graft; Z98.1 Arthrodesis status; Z98.890 Other specified postprocedural states
CPT/HCPCS: 62304; 72132

== ENCOUNTER 2019-05-12 09:38 | Outpatient (CLI) | payer MEDICARE ==
--- NOTE | 2019-05-12 09:51 | RAD ---
Exam: Lumbar spine 2 views: HISTORY: Lumbar radiculopathy COMPARISON: 09/09/2018 FINDINGS: Postoperative changes with pedicle screws at L4 and L5. Vertical height loss of L1. Extensive hypertr ophic osteophytosis. Bony demineralization. Mild dextroscoliosis. IMPRESSION: Spondylosis. Stable vertical height loss of L1. No new process.
== END 2019-05-12 09:39 | disposition home or self-care (01) ==
LOC: TBSIIMAG 09:38
PROVIDERS: ATTEND Neurological Surgery
DX: M47.26 Other spondylosis with radiculopathy, lumbar region (principal)
CPT/HCPCS: 72100

== ENCOUNTER 2019-05-24 07:45 | Day surgery (SDC) | payer MEDICARE ==
[2019-05-23 10:34] VITALS: BMI 36.0
[2019-05-24 07:56] VITALS: BP 151/66; TEMP 98.7
--- NOTE | 2019-05-24 12:19 | CT ---
CT LUMBAR SPINE WITH CONTRAST: (CT LUMBAR MYELOGRAM) Date: 05/24/2019 HISTORY: 78-year-old female with low back pain and worsening bilateral lumbar radiculopathy. COMPARISON: 09/16/2018 FINDINGS: Transitional vertebra at lumbosacral junction. For the purposes of this report, the first nonrib-bear ing vertebra (with the old compression fracture) will be designated as L1. L5 is partially sacralized, with complete ankylosis of the dysplastic right transverse process with the right sacral ala, and no articulation between the mildly enlarged left L5 transverse process with the left sacral ala. (Type III A). At least mild lateral curvature. Bridging osteophytes on the right side partially ankylosing the T10, T11, and T12 vertebrae. T11-12: Otherwise normal. T12-L1: Vacuum disc phenomenon. Moderate old compression fracture of L1 with maximum anterior loss of height of approximately 50% or greater. No significant posterior loss of height. Minimal bony retropulsion qualifying this is a mild old burst fracture. No high-grade central spinal canal stenosi s. Moderate-severe right neural foraminal stenosis due to endplate osteophyte, not significant changed (previously stated as moderate, but is actually greater than that). No left neural foraminal stenosis. No interval change. Conus medullaris terminates at this level. No overall interval change. L1-2: Degenerative retrolisthesis of L1 on L2 results in mild central spinal canal stenosis. Vacuum d isc phenomenon. No significant disc space narrowing. Moderate to severe bilateral neural foraminal stenosis, mostly due to the retrolisthesis. No significant interval change. L2-3: Mild degenerative retrolisthesis of L2 on L3. Vacuum disc phenomenon. Disc space maintained. Mi ld ligamentum flavum thickening and mild to moderate degenerative facet hypertrophy. Moderate bilateral neural foraminal stenosis. Mild to moderate central spinal canal stenosis, unchanged since the prior CT. L3-4: Small focal left paracentral-lateral calcified disc herniation which was mildly posteriorly dis placing the left L4 nerve root near the subarticular zone. What previously appeared to be a new small focal approximately 5 mm soft tissue density suggestive of a small additional disc extrusion wi th inferior migration, is no longer identified, indicating that it was artifact related to streak artifact from the hardware. Overall degree of central spinal canal stenosis is mild to moderate. Mild bilateral neural foraminal stenosis. No high-grade disc space narrowing. L4-5: Again noted is the severe bilateral facet DJD causing grade 1 anterolisthesis of L4 on L5. Mild to moderate bilateral neural foraminal stenosis. No high-grade central spinal canal stenosis. Again noted are the bilateral L4 and L5 pedicle screws. No malpositioning or hardware loosening ident ified. No high-grade disc space narrowing. L5-S1: Approximately 1 x 1.5 x 1.5 cm left Tarlov cyst filled with CSF and intrathecal contrast mater ial. No acquired central spinal canal stenosis. Hypoplastic bilateral facet joints. No neural foraminal stenosis. Partial ankylosis between the endplates. IMPRESSION: 1) grade 1 spondylolisthesis at L4-5 due to severe bilateral facet osteoarthrosis, stabilized with po sterior hardware: Bilateral pedicle screws. 2) transitional lumbosacral vertebra type IIIa. 3) no severe central spinal canal stenosis at any level. 4) old compression/burst fracture of L1. 5) high-grade bilateral neural foraminal stenosis at L1-2 and on the right at T12-L1. 6) no major interval change overall.
--- NOTE | 2019-05-24 13:52 | RAD ---
Myelogram lumbar: DATE: 05/24/2019 HISTORY: 78-year-old female with chronic low back pain and worsening bilateral lumbar radiculopathy. TECHNIQUE: Signed informed consent obtained. Preprocedural coffee maker images obtained. Patient placed prone on fluoro scopy table. Overlying skin of back prepped and draped in usual sterile fashion. 25-gauge needle used to apply buffered lidocaine. T12-L1 right paramedian interlaminar approach selected after review of prior CT myelogram demonstrates conus medullaris termination at this level. 22-gauge spinal needle advanced into spinal canal. Brisk return of clear CSF. 10 mL CSF removed and discarded. 10 mL Isovue-M 200 injected intrathecally under brief, intermittent fluoroscopy. Needle removed. Frontal and lateral radiographs of lumbar spine obtained in recumbent position and upright position. No major interval change is detected between the upright and recumbent views. Patient tolerated procedure well. No complications. IMPRESSION: 1. Successful lumbar myelogram. 2. See separate report of CT lumbar myelogram.
[2019-05-24] MEDS ORDERED: Iopamidol-M 200 41% 20 ML VIAL ONE (14:25)
== END 2019-05-24 09:40 | disposition home or self-care (01) ==
LOC: RAD 07:45
PROVIDERS: ATTEND Neurological Surgery
PROC: B02B1ZZ Computerized Tomography (CT Scan) of Spinal Cord using Low Osmolar Contrast (ICD-10-PCS; principal; 2019-05-24)
DX: M51.16 Intervertebral disc disorders with radiculopathy, lumbar region (principal); M48.061 Spinal stenosis, lumbar region without neurogenic claudication; M43.16 Spondylolisthesis, lumbar region; I10 Essential (primary) hypertension; E11.9 Type 2 diabetes mellitus without complications; I25.10 Atherosclerotic heart disease of native coronary artery without angina pectoris; F41.9 Anxiety disorder, unspecified; F32.9 Major depressive disorder, single episode, unspecified; G47.30 Sleep apnea, unspecified; Z79.82 Long term (current) use of aspirin; Z79.84 Long term (current) use of oral hypoglycemic drugs; Z79.899 Other long term (current) drug therapy; Z88.0 Allergy status to penicillin; Z88.2 Allergy status to sulfonamides; Z88.5 Allergy status to narcotic agent; Z88.6 Allergy status to analgesic agent; Z88.8 Allergy status to other drugs, medicaments and biological substances; Z95.5 Presence of coronary angioplasty implant and graft
CPT/HCPCS: 62304; 72132; Q9966

== ENCOUNTER 2020-05-07 14:45 | Observation (INO) | payer MEDICARE ==
[~2020-05-07 14:45] MED LIST changes: +Iopamidol-370 76% 500 ML 1 ML ONE; -Prevnar 13-Val Conj/PF 0.5 ML SYRINGE IM ONE
[2020-05-07 15:43] LABS: #Eosinphils 0.3 thou/uL (0.0-0.7); #Lymphocytes 1.4 thou/uL (1.20-3.40); #Monocytes 0.7 thou/uL (0.11-0.59); %Basophils 0.6 % (0.0-1.0); %Eosinophils 3.6 % (0.0-10.0); %Lymphocytes 19.2 % (21.0-51.0); %Monocytes 9.9 % (0.0-10.0); %Neutrophils 66.7 % (42.0-75.0); Hemoglobin 11.3 g/dL (12.0-16.0); Mean Corpuscular HGB CONC 32.9 g/dL (32.0-36.0); Mean Corpuscular Hemoglobin 29.1 pg (27.0-31.0); Mean Corpuscular Volume 88.4 fL (78.0-98.0); Mean Platelet Volume 7.5 fL (7.4-10.4); Platelet Count 172 thou/uL (130-400); RBC Distribution Width 12.3 % (11.5-14.5); White Blood Cell (WBC) Count 7.5 thou/uL (4.8-10.8)
[2020-05-07 15:51] LABS: ALT (SGPT) 13 U/L (8-55); AST (SGOT) 14 U/L (5-34); Albumin 3.6 g/dL (3.4-4.8); Alkaline Phosphatase 114 U/L (40-110); Anion Gap 17 mmol/L (10-20); BUN (Urea Nitrogen) 31 mg/dL (9.8-20.1); Bilirubin, Total 0.3 mg/dL (0.2-1.2); CK (CPK) 77 U/L (29-168); Calc. Creatinine Clearance 0 mL/min (70-130); Calcium 8.6 mg/dL (7.8-10.44); Carbon Dioxide 25 mmol/L (23-31); Chloride 99 mmol/L (98-107); Globulin 2.9 g/dL (2.4-3.5); Glucose 81 mg/dL (83-110); Lipase 25 U/L (8-78); Protein, Total 6.5 g/dL (5.8-8.1); Sodium 137 mmol/L (136-145)
[2020-05-07] MEDS ORDERED: Furosemide 40 MG/4 ML VIAL ONE (16:09)
[2020-05-07] MEDS ORDERED: Nitroglycerin 2% Ointment 1 INCH/1 GM Packet ONE (16:09)
--- NOTE | 2020-05-07 18:47 | CT ---
CT angiogram chest with IV contrast and 3-D imaging HISTORY: Chest pain. Dyspnea. COMPARISON: 05/08/2016. FINDINGS: There is good contrast opacification pulmonary arteries and thoracic aorta with normal bran jesus of the great vessels at the aortic arch. A noncalcified 0.4 cm nodules within the right upper and middle lobes are stable. Calcified granuloma at the left lung base also stable. No pleural fluid or mediastinal adenopathy. Gallbladder surgically absent. Postoperative changes of the lower cervical spine. The 1.1 cm hyperden se cyst projecting medially from the superior pole of the right kidney has enlarged slightly from 0.8 cm. Old healed fracture of the right clavicular head. IMPRESSION : No evidence of pulmonary embolus. No acute abnormalities are demonstrated.
--- NOTE | 2020-05-07 18:55 | RAD ---
PORTABLE CHEST: HISTORY: Dyspnea and chest pain. COMPARISON: 05/08/2016 FINDINGS: Elevated right hemidiaphragm again noted. The lung munson are clear. No infiltrate or vascular conges tion. Heart size is within the normal range. Pacemaker leads again noted. IMPRESSION: No acute lung process identified. POS: AGW
--- NOTE | 2020-05-07 21:31 | PDOC.HHP ---
Hospitalist HPI Chest pain, weight gain History of Present Illness: This is a 49-year-old female patient with a history of CHF, diabetes and hypertension was brought in by EMS on account of chest tightness shortness of breath and increasing weight for the past couple of days. Of note patient was recently admitted at [facility] for heart failure and was diuresed and sent home about 4 days ago. However at home her daughter noted that she is still bloated and gained weight with worsening shortness of breath. This led him to activate EMS. Initial intention was to send her to [facility] however EMS team decided to bring her here based on some conditions that you are not clear about. She knows about 4-510 chest tightness which is significantly improved with [place] evaluated here. She also had shortness of breath which is improved with initial dialysis. She denies any fever, sweats or chills. She denies any exposure to Covid On arrival her blood pressure was 125/63, pulse 66, respiratory rate 18, temperature 97.7 and saturating 95 on room air. Labs showed mild anemia of 11.3, creatinine of 1.81 from a baseline of 1.26, troponin was 0.025, BNP 242.9 EKG showed AV dual paced rhythm with no concerning ST or T wave changes. QTc was prolonged at 575. Chest x-ray showed no acute lung abnormalities and CT scan of the chest ruled out pulmonary embolus. She was started on aspirin, Nitro-Bid and Lasix. Hospitalist team was consulted to admit. Allergies/Adverse Reactions: Allergy/AdvReac Type Severity Reaction Status Date / Time LIZZETTE Inhibitors Allergy Verified 06/09/19 15:33 acetaminophen [From [place]] Allergy Verified 06/09/19 15:33 codeine Allergy Verified 06/09/19 15:33 hydrocodone [From [place]] Allergy Verified 06/09/19 15:33 methocarbamol Allergy Verified 06/09/19 15:33 Penicillins Allergy Verified 06/09/19 15:33 Sulfa (Sulfonamide Allergy Verified 06/09/19 15:33 Antibiotics) tramadol Allergy Verified 06/09/19 15:33 Home Medications: Medication Instructions Recorded Confirmed Type Carvedilol [Coreg] 25 mg PO BID 08/01/15 05/23/19 History FLUoxetine HCl [Prozac] 20 mg PO HS 08/01/15 05/23/19 History Isosorbide Mononitrate [Imdur ER] 45 mg PO DAILY 08/01/15 05/23/19 History Amlodipine [Norvasc] 5 mg PO DAILY 03/11/18 05/23/19 History Aspirin 325 mg PO DAILY 03/11/18 05/23/19 History Furosemide 20 mg PO QAM 03/11/18 05/23/19 History Gabapentin [Neurontin] 300 mg PO TID 03/11/18 05/23/19 History Lisinopril 10 mg PO BID 03/11/18 05/23/19 History Pramipexole Di-HCl [Pramipexole 0.25 mg PO QPM 03/11/18 05/23/19 History Dihydrochloride] Cyclobenzaprine HCl 5 mg PO TID PRN 04/16/18 05/23/19 History Aluminum & Magnesium Hydroxide 30 ml PO Q4H PRN udcup 04/22/18 05/23/19 Rx [Maalox] Ketorolac Tromethamine 10 mg PO Q6HR PRN 09/15/18 05/23/19 History glyBURIDE [Micronase] 2.5 mg PO DAILY 09/15/18 05/23/19 History Atorvastatin Calcium 20 mg PO DAILY 05/23/19 05/23/19 History Brimonidine Tartrate [Alphagan P 1 drop EA EYE TID 05/23/19 05/23/19 History 0.1% Ophth Soln] Clopidogrel Bisulfate [Plavix] 75 mg PO DAILY 05/23/19 05/23/19 History Loteprednol Etabonate [Lotemax 1 - 2 drop EA EYE QID 05/23/19 05/23/19 History 0.5% Ophth Suspension] Pregabalin 100 mg PO TID 05/23/19 05/23/19 History cloNIDine [Catapres] 0.1 mg PO PRN PRN 05/23/19 05/23/19 History Past History: PMHx: CHF, diabetes mellitus, hypertension PSHx: Cholecystectomy, hysterectomy, left knee surgery FHx: None of Social: Never smoker alcohol use. Lives at home alone. Hospitalist HPI ROS Constitutional: denies: fever, chills, sweats, weakness Respiratory: reports: cough, dry, shortness of breath, SOB with excertion. denies: hemoptysis Cardiovascular: reports: chest pain. denies: palpitations, orthopnea, paroxysmal noc. dyspnea Gastrointestinal: denies: nausea, vomiting, abdominal pain, diarrhea Genitourinary: denies: dysuria, frequency, incontinence, hematuria Musculoskeletal: denies: neck pain, shoulder pain, arm pain Neurological: denies: weakness, numbness, incoordination All other systems reviewed; all pertinent +/- noted in HPI/Subj Hospitalist Exam General Appearance: awake alert General - other findings: No acute distress Eye: PERRL, anicteric sclera ENT: normocephalic atraumatic Neck: supple, symmetric, no JVD Heart: RRR, no murmur, no gallops, no rubs Respiratory: CTAB, no wheezes, no rales, no ronchi Gastrointestinal: soft, normal bowel sounds, no palpable masses, no guarding, no rigidity Gastrointestinal - other findings: Abdomen is obese Extremities: no cyanosis, no clubbing, 1+ LE edema Neurological: cranial nerve grossly intact, no weakness, no focal deficits Musculoskeletal: normal tone Psychiatric: normal affect, normal behavior, A&O x 3 Hospitalist Results Result Diagrams: 05/07/20 15:15 05/07/20 15:21 Lab results: Laboratory Last Values WBC 7.5 thou/uL (4.8-10.8) 05/07/20 15:15 RBC 3.90 mill/uL (4.20-5.40) L 05/07/20 15:15 Hgb 11.3 g/dL (12.0-16.0) L 05/07/20 15:15 Hct 34.5 % (36.0-47.0) L 05/07/20 15:15 MCV 88.4 fL (78.0-98.0) 05/07/20 15:15 MCH 29.1 pg (27.0-31.0) 05/07/20 15:15 MCHC 32.9 g/dL (32.0-36.0) 05/07/20 15:15 RDW 12.3 % (11.5-14.5) 05/07/20 15:15 Plt Count 172 thou/uL (130-400) 05/07/20 15:15 MPV 7.5 fL (7.4-10.4) 05/07/20 15:15 Neutrophils % 66.7 % (42.0-75.0) 05/07/20 15:15 Lymphocytes % 19.2 % (21.0-51.0) L 05/07/20 15:15 Monocytes % 9.9 % (0.0-10.0) 05/07/20 15:15 Eosinophils % 3.6 % (0.0-10.0) 05/07/20 15:15 Basophils % 0.6 % (0.0-1.0) 05/07/20 15:15 Neutrophils # 5.0 thou/uL (1.40-6.50) 05/07/20 15:15 Lymphocytes # 1.4 thou/uL (1.20-3.40) 05/07/20 15:15 Monocytes # 0.7 thou/uL (0.11-0.59) H 05/07/20 15:15 Eosinophils # 0.3 thou/uL (0.0-0.7) 05/07/20 15:15 Basophils # 0.0 thou/uL (0.0-0.2) 05/07/20 15:15 D-Dimer 1.95 *mcg/mL (0.27-0.43) H 05/07/20 15:15 Sodium 137 mmol/L (136-145) 05/07/20 15:21 Potassium 4.0 mmol/L (3.5-5.1) 05/07/20 15:21 Chloride 99 mmol/L (98-107) 05/07/20 15:21 Carbon Dioxide 25 mmol/L (23-31) 05/07/20 15:21 Anion Gap 17 mmol/L (10-20) 05/07/20 15:21 BUN 31 mg/dL (9.8-20.1) H 05/07/20 15:21 Creatinine 1.81 mg/dL (0.6-1.1) H 05/07/20 15:21 Estimated GFR (MDRD) 27 05/07/20 15:21 Glucose 81 mg/dL (83-110) L 05/07/20 15:21 Calcium 8.6 mg/dL (7.8-10.44) 05/07/20 15:21 Total Bilirubin 0.3 mg/dL (0.2-1.2) 05/07/20 15: AST 14 U/L (5-34) 05/07/20 15: ALT 13 U/L (8-55) 05/07/20 15: Alkaline Phosphatase 114 U/L (40-110) H 05/07/20 15:21 Creatine Kinase 77 U/L (29-168) 05/07/20 15: Troponin I 0.025 ng/mL (< 0.028) 05/07/20: B-Natriuretic Peptide 242.9 pg/mL (0-100) H 05/07/20 15: Serum Total Protein 6.5 g/dL (5.8-8.1) 05/07/20: Albumin 3.6 g/dL (3.4-4.8) 05/07/20: Globulin 2.9 g/dL (2.4-3.5) 05/07/20: Albumin/Globulin Ratio 1.2 g/dL (1.2-2.2) 05/07/20: Lipase 25 U/L (8-78) 05/07/20 15: Hospitalist H&P A/P Plan: This is a 79-year-old female patient history of CHF, diabetes and hypertension recently discharged from [facility] after being managed for CHF exacerbation who presents with increasing weight gain worsening shortness of breath concerning for inadequate diuresis on her last admission. CHF exacerbation Likely incompletely treated We will continue diuresis Echo in a.m. Daily weights, ins and outs monitoring Low-sodium diet Consider cardiac consult in a.m. RENETTA creatinine 1.81 from a baseline of 1.26 Probably cardiorenal We will diurese You with Monitor renal function Avoid cardiotoxic agent Nephrology consult if worsens. Chest pain Unlikely cardiac Troponin not elevatedwe will trend Monitor on telemetry Normocytic anemia This mild at 11.3 Monitor CBC Diabetes mellitus Correctional insulin Monitor glucose. Carotid artery disease On aspirin/Plavixresume once verified. Continue lipid-lowering agents is very Hypertension Hold lisinopril for now on account of RENETTA Restart amlodipine once verified. VT prophylaxisHeparin CODE STATUSfull code.
[2020-05-07] MEDS ORDERED: HumaLOG 300 UNITS/3 ML VIAL SC PRN ×2 (21:41→22:37)
[2020-05-07] MEDS ORDERED: Dextrose 5% in Water 1,000 ML IV PRN (21:41)
[2020-05-07] MEDS ORDERED: Dextrose 50% Abboject 50 ML SYRINGE SLOW IVP PRN (21:41)
[2020-05-07] MEDS ORDERED: Aspirin 325 MG TAB PO SCH (23:00)
--- NOTE | 2020-05-07 23:11 | CT ---
CT head noncontrast HISTORY: Right hand and face numbness. COMPARISON: 01/07/2007. FINDINGS: There is no evidence of acute intracranial hemorrhage or infarct. 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 Additional mild gliotic changes are apparent throughout the periventricular white matter of each cerebral hemisp here. Mild diffuse cortical atrophy. There is no mass effect or shift of midline structures. Hyperdense material fills the left sphenoid sinus and posterior ethmoid air cells with thickening of the surrounding osseous structures. IMPRESSION : Evidence of chronic small vessel disease. No acute intracranial abnormalities are demonstrated. Chronic left sphenoid sinusitis.
[2020-05-07 23:17] LABS: Troponin I 0.041 ng/mL (< 0.028)
[2020-05-08 01:06] VITALS: BMI 41.5
[2020-05-08] MEDS ORDERED: Aspirin 325 MG TAB ONE ×2 (01:52→10:57)
[2020-05-08] MEDS ORDERED: Acetaminophen 500 MG TAB ONE ×2 (05:54→11:03)
[2020-05-08] MEDS ORDERED: Furosemide 40 MG/4 ML VIAL SLOW IVP SCH (06:00)
[2020-05-08] MEDS ORDERED: Acetaminophen 500 MG TAB PO SCH (06:00)
[2020-05-08 07:14] LABS: #Eosinphils 0.3 thou/uL (0.0-0.7); #Lymphocytes 1.5 thou/uL (1.20-3.40); #Monocytes 0.7 thou/uL (0.11-0.59); #Neutrophils 4.1 thou/uL (1.40-6.50); %Basophils 0.2 % (0.0-1.0); %Eosinophils 4.6 % (0.0-10.0); %Neutrophils 61.3 % (42.0-75.0); Hemoglobin 11.4 g/dL (12.0-16.0); Mean Corpuscular HGB CONC 33.9 g/dL (32.0-36.0); Mean Corpuscular Hemoglobin 30.5 pg (27.0-31.0); Mean Corpuscular Volume 90.1 fL (78.0-98.0); Mean Platelet Volume 7.8 fL (7.4-10.4); Platelet Count 163 thou/uL (130-400); RBC Distribution Width 12.3 % (11.5-14.5); Red Blood Cell (RBC) Count 3.73 mill/uL (4.20-5.40); White Blood Cell (WBC) Count 6.6 thou/uL (4.8-10.8)
[2020-05-08 07:33] LABS: Anion Gap 13 mmol/L (10-20); BUN (Urea Nitrogen) 28 mg/dL (9.8-20.1); Calc. Creatinine Clearance 60 mL/min (70-130); Calcium 8.6 mg/dL (7.8-10.44); Carbon Dioxide 30 mmol/L (23-31); Cardiac Risk 3.2 (Less than 4.5); Chloride 99 mmol/L (98-107); Cholesterol 136 mg/dl (< 200 Desired); Glucose 105 mg/dL (83-110); HDL Cholesterol 43 mg/dL (>60 Neg Risk); LDL Cholesterol, Calculated 77 mg/dL; Potassium 3.8 mmol/L (3.5-5.1); Sodium 138 mmol/L (136-145); Triglycerides 82 mg/dL (Less than 150)
[2020-05-08] MEDS ORDERED: Enoxaparin Sodium 30 MG/0.3 ML SYRINGE SC SCH (09:00)
[2020-05-08] MEDS ORDERED: Aspirin 325 mg Enteric Coated Tablet PO SCH (09:00)
[2020-05-08] MEDS ORDERED: Clopidogrel Bisulfate 75 MG TAB PO SCH (09:00)
[2020-05-08] MEDS ORDERED: Heparin 5,000 UNITS/ML VIAL SC SCH (09:00)
[2020-05-08] MEDS ORDERED: Carvedilol 25 MG TAB PO SCH ×2 (09:30→21:00)
--- NOTE | 2020-05-08 10:09 | CON ---
DATE OF CONSULTATION: HISTORY OF PRESENT ILLNESS: The patient is a very pleasant 79-year-old woman, who presents with increasing dyspnea and chest discomfort. The patient states that she has a long history of coronary artery disease. She has had several PTCA and stent placements several years ago. The patient also has a history of pacemaker placement. The patient also has chronic congestive heart failure. She is followed by Dr. Sundeep Mariano. The patient was recently hospitalized at [facility] with congestive heart failure. The patient was diuresed and subsequently released. The patient reports that she continued to be mildly dyspneic and continued to have lower extremity swelling. She also reported having midsternal chest discomfort. She reports this is a persistent discomfort that has been present for the past 24 hours. She states this is worse whenever she takes a deep breath. The patient reports that it has lessened since she has been breathing better. The patient reports that her chest discomfort is still present. She was scheduled to see Dr. Mariano tomorrow and undergo evaluation. The patient did undergo a cardiac catheterization last summer. She was told at that time that she had patent stents prior to undergoing knee surgery. PAST MEDICAL HISTORY: 1. Coronary artery disease. 2. Hypertension. 3. Diabetes mellitus. 4. History of pacemaker placement. 5. Diabetes mellitus. 6. Obesity. 7. Dyslipidemia. PAST SURGICAL HISTORY: Cholecystectomy, hysterectomy, and knee surgery. SOCIAL HISTORY: Nonsmoker. FAMILY HISTORY: Positive family history of heart disease. ALLERGIES: LIZZETTE INHIBITORS, ACETAMINOPHEN, CODEINE, AND HYDROCODONE. MEDICATIONS: 1. Glyburide 2.5 daily. 2. Pregabalin 100 t.i.d. 3. Imdur 40 daily. 4. Neurontin 300 t.i.d. 5. Lasix 20 daily. 6. Plavix 75 daily. 7. Coreg 25 b.i.d. 8. Ranexa 500 b.i.d. 9. Lipitor 20 at bedtime. 10. Aspirin 325 daily. 11. She is on Prozac 20 daily. 12. Pramipexole 0.5 mg at bedtime. 13. Remeron 7.5 daily. 14. Lipitor 40 at bedtime. 15. BuSpar 5 mg t.i.d. 16. Clonidine patch. REVIEW OF SYSTEMS: 10-point system otherwise unremarkable. No history of easy bruising or bleeding. No bright red blood per rectum. The patient does report having some numbness in the right hand. PHYSICAL EXAMINATION: GENERAL: Obese woman, in no acute distress. VITAL SIGNS: Blood pressure 125/63. NECK: No jugular venous distention. LUNGS: Have a few crackles in both bases. HEART: Regular rate and rhythm. Normal S1, S2 with a 3/6 systolic murmur. ABDOMEN: Markedly distended. EXTREMITIES: Showed severe bilateral edema. VASCULAR: Radial pulses are pulse 2+. LABORATORY DATA: Sodium 138, potassium 3.8, chloride 99, bicarbonate 30, BUN 20, creatinine 1.37, glucose 105. White blood count 6.6, hemoglobin 11.4, hematocrit 33.6, and platelets 163. EKG reveals normal sinus rhythm with an electronic ventricular pacemaker. Chest x-ray of clear lung mun[place]. CT scan of the chest showed no evidence of pulmonary embolus. IMPRESSION: 1. Congestive heart failure. 2. History of atypical chest pain. 3. History of coronary artery disease, status post PTCA and stent placement. 4. Probable aortic stenosis. 5. History of pacemaker. 6. Hypertension. 7. Diabetes mellitus. 8. Obesity. This patient presents with congestive heart failure and chest discomfort. This has been persistent for 24 hours. There is no significant elevation in her troponin levels. She had a recent cardiac catheterization, which revealed no patent coronary stents with no apparent progression of coronary artery disease. She is on appropriate medical therapy. We will check an echocardiogram. We will try to obtain records from Dr. Mariano. We will follow this patient with you through her hospitalization. Job ID: [id number] [facility]
[2020-05-08] MEDS ORDERED: Clopidogrel Bisulfate 75 MG TAB ONE (10:57)
[2020-05-08 11:56] LABS: Troponin I 0.025 ng/mL (< 0.028)
--- NOTE | 2020-05-08 12:06 | ULT ---
BILATERAL CAROTID DUPLEX ULTRASOUND: HISTORY: TIA TECHNIQUE: Grayscale, color-flow and spectral Doppler ultrasound imaging of the extracranial carotid artery syst ems was performed bilaterally. FINDINGS: There is plaque formation on both sides The peak systolic velocity in the right ICA measures 101 cm/s with an end-diastolic velocity of 17 cm /s and a systolic ratio of 1.09. The peak systolic velocity in the left ICA measures 66.2 cm/s with an end-diastolic velocity of 12 cm/s and a systolic ratio of 0.78. Flow in both vertebral arteries remains antegrade. IMPRESSION: No evidence of hemodynamically significant stenosis in either ICA.
[2020-05-08] MEDS ORDERED: Furosemide 100 MG/10 ML VIAL SLOW IVP SCH (14:00)
[2020-05-08] MEDS ORDERED: Pregabalin 75 MG CAP PO SCH ×2 (15:00→21:00)
[2020-05-08] MEDS ORDERED: Furosemide 40 MG/4 ML VIAL ONE (15:09)
--- NOTE | 2020-05-08 16:47 | CON ---
NEUROLOGY CONSULTATION DATE OF CONSULTATION: 05/08/2020 REASON FOR CONSULTATION: TIA. HISTORY OF PRESENT ILLNESS: Ms. Madrid is a 79-year-old female with medical history significant for congestive heart failure, diabetes, and hypertension, presented to the hospital with shortness of breath and increased weight gain since the last couple of days. She was recently admitted for heart failure at [facility] and was sent home four days ago. Per patient's daughter, she started having the same symptoms again, so she called the EMS and brought here for further management. The patient has also ongoing issues with memory, trembling, paresthesias, tingling, numbness, and weakness, for which she has been evaluated at the [facility]. She had CT scans done and also scheduled for a neuropsychological testing,. Neurology was consulted to rule out TIA. Allergies/Adverse Reactions: Allergy/AdvReac Type Severity Reaction Status Date / Time LIZZETTE Inhibitors Allergy Verified 06/09/19 15:33 acetaminophen [From [place]] Allergy Verified 06/09/19 15:33 codeine Allergy Verified 06/09/19 15:33 hydrocodone [From [place]] Allergy Verified 06/09/19 15:33 methocarbamol Allergy Verified 06/09/19 15:33 Penicillins Allergy Verified 06/09/19 15:33 Sulfa (Sulfonamide Allergy Verified 06/09/19 15:33 Antibiotics) tramadol Allergy Verified 06/09/19 15:33 Home Medications: Medication Instructions Recorded Confirmed Type Carvedilol [Coreg] 25 mg PO BID 08/01/15 05/23/19 History FLUoxetine HCl [Prozac] 20 mg PO HS 08/01/15 05/23/19 History Isosorbide Mononitrate [Imdur ER] 45 mg PO DAILY 08/01/15 05/23/19 History Amlodipine [Norvasc] 5 mg PO DAILY 03/11/18 05/23/19 History Aspirin 325 mg PO DAILY 03/11/18 05/23/19 History Furosemide 20 mg PO QAM 03/11/18 05/23/19 History Gabapentin [Neurontin] 300 mg PO TID 03/11/18 05/23/19 History Lisinopril 10 mg PO BID 03/11/18 05/23/19 History Pramipexole Di-HCl [Pramipexole 0.25 mg PO QPM 03/11/18 05/23/19 History Dihydrochloride] Cyclobenzaprine HCl 5 mg PO TID PRN 04/16/18 05/23/19 History Aluminum & Magnesium Hydroxide 30 ml PO Q4H PRN udcup 04/22/18 05/23/19 Rx [Maalox] Ketorolac Tromethamine 10 mg PO Q6HR PRN 09/15/18 05/23/19 History glyBURIDE [Micronase] 2.5 mg PO DAILY 09/15/18 05/23/19 History Atorvastatin Calcium 20 mg PO DAILY 05/23/19 05/23/19 History Brimonidine Tartrate [Alphagan P 1 drop EA EYE TID 05/23/19 05/23/19 History 0.1% Ophth Soln] Clopidogrel Bisulfate [Plavix] 75 mg PO DAILY 05/23/19 05/23/19 History Loteprednol Etabonate [Lotemax 1 - 2 drop EA EYE QID 05/23/19 05/23/19 History 0.5% Ophth Suspension] Pregabalin 100 mg PO TID 05/23/19 05/23/19 History cloNIDine [Catapres] 0.1 mg PO PRN PRN 05/23/19 05/23/19 History PAST MEDICAL HISTORY: Congestive heart failure, diabetes mellitus, and hypertension. PAST SURGICAL HISTORY: Cholecystectomy, hysterectomy, and left knee surgery. FAMILY HISTORY: None. SOCIAL HISTORY: The patient denies smoking, alcohol, or illegal drug use. She lives at home alone. REVIEW OF SYSTEMS: All systems reviewed and were negative except the pertinent positives and negatives mentioned in the HPI. Vital Signs & Weight: Vital Signs (12 hours) Pulse Pulse BP BP Pulse Ox Pulse Ox 05/08/20 12:14 63 71 142/65 H 153/69 H 96 96 Weight Weight 250 lb 0.067 oz Additional Labs: Accuchecks 05/08/20 05/08/20 05:42 02:11 POC Glucose 132 H 145 H Active Medications Generic Name Dose Route Start Last Admin Trade Name Freq PRN Reason Stop Dose Admin Aspirin 325 mg 05/08/20 09:00 05/08/20 11:19 Aspirin 325 Mg Enteric Coated Tablet PO 325 mg DAILY SCARLETT Administration Clopidogrel Bisulfate 75 mg 05/08/20 09:00 05/08/20 11:19 Clopidogrel Bisulfate 75 Mg Tab PO 75 mg DAILY SCARLETT Administration Furosemide 80 mg 05/08/20 14:00 05/08/20 15:13 Furosemide 100 Mg/10 Ml Vial SLOW IVP 80 mg 0600,1400 SCARLETT Administration Ranolazine 500 mg 05/08/20 09:00 05/08/20 11:19 Ranolazine 500 Mg Tab PO 500 mg BID SCARLETT Administration Vitals: Vital Signs (12 hours) Pulse Pulse BP BP Pulse Ox Pulse Ox 05/08/20 12:14 63 71 142/65 H 153/69 H 96 96 Weight Weight 250 lb 0.067 oz PHYSICAL EXAMINATION: General Appearance: NAD, awake alert Eye: PERRL, anicteric sclera ENT: normocephalic atraumatic, no oropharyngeal lesions Neck: no JVD Heart: RRR, no murmur, no gallops, no rubs Respiratory - other findings: diminished breath sounds bilaterally Gastrointestinal: soft, non-tender, non-distended, normal bowel sounds Extremities: no cyanosis, no clubbing, 2+ LE edema LABORATORY DATA: Significant for anemia, hemoglobin of 11.3, hematocrit of 34.5, also acute kidney injury. BUN of 31 and creatinine of 1.81. Lab results: Laboratory Last Values WBC 7.5 thou/uL (4.8-10.8) 05/07/20 15:15 RBC 3.90 mill/uL (4.20-5.40) L 05/07/20 15:15 Hgb 11.3 g/dL (12.0-16.0) L 05/07/20 15:15 Hct 34.5 % (36.0-47.0) L 05/07/20 15:15 MCV 88.4 fL (78.0-98.0) 05/07/20 15:15 MCH 29.1 pg (27.0-31.0) 05/07/20 15:15 MCHC 32.9 g/dL (32.0-36.0) 05/07/20 15:15 RDW 12.3 % (11.5-14.5) 05/07/20 15:15 Plt Count 172 thou/uL (130-400) 05/07/20 15:15 MPV 7.5 fL (7.4-10.4) 05/07/20 15:15 Neutrophils % 66.7 % (42.0-75.0) 05/07/20 15:15 Lymphocytes % 19.2 % (21.0-51.0) L 05/07/20 15:15 Monocytes % 9.9 % (0.0-10.0) 05/07/20 15:15 Eosinophils % 3.6 % (0.0-10.0) 05/07/20 15:15 Basophils % 0.6 % (0.0-1.0) 05/07/20 15:15 Neutrophils # 5.0 thou/uL (1.40-6.50) 05/07/20 15:15 Lymphocytes # 1.4 thou/uL (1.20-3.40) 05/07/20 15:15 Monocytes # 0.7 thou/uL (0.11-0.59) H 05/07/20 15:15 Eosinophils # 0.3 thou/uL (0.0-0.7) 05/07/20 15:15 Basophils # 0.0 thou/uL (0.0-0.2) 05/07/20 15:15 D-Dimer 1.95 *mcg/mL (0.27-0.43) H 05/07/20 15:15 Sodium 137 mmol/L (136-145) 05/07/20 15:21 Potassium 4.0 mmol/L (3.5-5.1) 05/07/20 15:21 Chloride 99 mmol/L (98-107) 05/07/20 15:21 Carbon Dioxide 25 mmol/L (23-31) 05/07/20 15:21 Anion Gap 17 mmol/L (10-20) 05/07/20 15:21 BUN 31 mg/dL (9.8-20.1) H 05/07/20 15:21 Creatinine 1.81 mg/dL (0.6-1.1) H 05/07/20 15:21 Estimated GFR (MDRD) 27 05/07/20 15:21 Glucose 81 mg/dL (83-110) L 05/07/20 15:21 Calcium 8.6 mg/dL (7.8-10.44) 05/07/20 15:21 Total Bilirubin 0.3 mg/dL (0.2-1.2) 05/07/20 15:21 AST 14 U/L (5-34) 05/07/20 15:21 ALT 13 U/L (8-55) 05/07/20 15:21 Alkaline Phosphatase 114 U/L (40-110) H 05/07/20 15:21 Creatine Kinase 77 U/L (29-168) 05/07/20 15:21 Troponin I 0.025 ng/mL (< 0.028) 05/07/20 15:21 B-Natriuretic Peptide 242.9 pg/mL (0-100) H 05/07/20 15:21 Serum Total Protein 6.5 g/dL (5.8-8.1) 05/07/20 15: Albumin 3.6 g/dL (3.4-4.8) 05/07/20: Globulin 2.9 g/dL (2.4-3.5) 05/07/20 15: Albumin/Globulin Ratio 1.2 g/dL (1.2-2.2) 05/07/20: Lipase 25 U/L (8-78) 05/07/20 15:21 ASSESSMENT AND PLAN: Ms. Ara Madrid is a 79-year-old female with medical history significant for congestive heart failure, diabetes mellitus, hypertension, recently discharged from [facility], admitted for management of CHF, presented again with congestive heart failure exacerbation. There is also history of ongoing neurological issues, for which according to the patient and daughter has been managed by at [facility] and do not want to seek further workup here since she is already scheduled for the neuropsych testing and further head CTs at [facility]. Strict control of blood pressure and blood glucose. Neuro checks every 4 hours. Continue medical management per primary team. Thank you for the consult. Job ID: [id number] [email or web address]
[2020-05-08] MEDS: Carvedilol 25 MG TAB PO SCH (16:49)
--- NOTE | 2020-05-08 17:01 | PDOC.HOSPP ---
- Subjective Encounter Date: 05/08/20 Encounter Time: 17:02 Subjective: F/u: CHF She was admitted at [facility] last Thursday and was discharged on . She states paramedics refused to take her to [facility] because of something abnormal on the EKG . She has been having shortness of breath where she couldn't ambulate to the bathroom since discharge. Her legs have gotten more swollen . SHe got lasix this am but thinks her swelling is worst. She did urinate two full containers She denies significant congestion in her chest, denies chest pain, fevers, chills, runny nose, cough - Objective Vital Signs & Weight: Vital Signs (12 hours) Pulse Pulse BP BP Pulse Ox Pulse Ox 05/08/20 12:14 63 71 142/65 H 153/69 H 96 96 Weight Weight 250 lb 0.067 oz Result Diagrams: 05/08/20 06:45 05/08/20 06:45 Additional Labs: Accuchecks 05/08/20 05/08/20 05:42 02:11 POC Glucose 132 H 145 H Hospitalist ROS - Review of Systems Constitutional: denies: fever, chills - Medication Medications: Active Medications Generic Name Dose Route Start Last Admin Trade Name Freq PRN Reason Stop Dose Admin Aspirin 325 mg 05/08/20 09:00 05/08/20 11:19 Aspirin 325 Mg Enteric Coated Tablet PO 325 mg DAILY SCARLETT Administration Clopidogrel Bisulfate 75 mg 05/08/20 09:00 05/08/20 11:19 Clopidogrel Bisulfate 75 Mg Tab PO 75 mg DAILY SCARLETT Administration Furosemide 80 mg 05/08/20 14:00 05/08/20 15:13 Furosemide 100 Mg/10 Ml Vial SLOW IVP 80 mg 0600,1400 SCARLETT Administration Ranolazine 500 mg 05/08/20 09:00 05/08/20 11:19 Ranolazine 500 Mg Tab PO 500 mg BID SCARLETT Administration Hospitalist Exam Vitals: Vital Signs (12 hours) Pulse Pulse BP BP Pulse Ox Pulse Ox 05/08/20 12:14 63 71 142/65 H 153/69 H 96 96 Weight Weight 250 lb 0.067 oz General Appearance: NAD, awake alert General - other findings: morbidly obese Eye: PERRL, anicteric sclera ENT: normocephalic atraumatic, no oropharyngeal lesions Neck: no JVD Heart: RRR, no murmur, no gallops, no rubs Respiratory - other findings: diminished breath sounds bilaterally Gastrointestinal: soft, non-tender, non-distended, normal bowel sounds Extremities: no cyanosis, no clubbing, 2+ LE edema Hosp A/P - Plan Chest Xray: no acute processs CTA: no no PE. 0.4 cm pulmonary nodules right upper and RML lobe. Old clavicle fracture right This is a 79 year old female who presented with chest pressure, worsening swelling in her legs and shortness of breath #Possible CHF exacerbation #History of CAD # Elevated troponin - troponin was borderline elevated. REpeat ECHO pending. No prior ECHO on file, normally is at [facility] and [place]. Continue aspirin and plavix and statin. Lasix dose increased to [address] Addison is following RENETTA - creatinine miprovd from 1.8 to 1.3. Hold lisinopril and spironolactone Hypertension - continue imdur and coreg Afib - s/p pacemaker. Continue coreg Restless leg syndrome - continue pramipexole Chronic back pain - continue lyrica Anemia - Hb 11.4
[2020-05-08] MEDS ORDERED: cloNIDine 0.1 MG TAB PO PRN (17:08)
[2020-05-08 18:07] LABS: SARS-CoV-2 PCR by NAA Not Detected (NotDetected)
[2020-05-08] MEDS ORDERED: Enoxaparin Sodium 40 MG/0.4 ML SYRINGE SC SCH (21:00)
[2020-05-08] MEDS ORDERED: Atorvastatin Calcium 20 MG TAB PO SCH (21:00)
[2020-05-08] MEDS ORDERED: Mirtazapine 15 MG TAB PO SCH (21:00)
[2020-05-08] MEDS ORDERED: Pramipexole Di-HCl 0.25 MG TAB PO SCH (21:00)
[2020-05-08] MEDS ORDERED: FLUoxetine HCl 20 MG CAP PO SCH (21:00)
[2020-05-08] MEDS: Pregabalin 50 MG CAP PO SCH (22:18)
[2020-05-08] MEDS: busPIRone HCl 5 MG TAB PO SCH (22:20)
[2020-05-08] MEDS: Brimonidine Tartrate 0.2% Ophth Soln 5 ml Bottle EA EYE SCH (22:21)
[2020-05-08] MEDS: Gabapentin 300 MG CAP PO SCH (22:21)
[2020-05-09] MEDS: Cyclobenzaprine 10 MG TAB PO PRN ×2 (00:02→11:11)
[2020-05-09] MEDS: Acetaminophen 325 MG TAB PO PRN ×3 (04:26→14:49)
[2020-05-09] MEDS: Furosemide 100 MG/10 ML VIAL SLOW IVP SCH ×2 (05:04→13:10)
[2020-05-09 05:09] LABS: Anion Gap 15 mmol/L (10-20); BUN (Urea Nitrogen) 26 mg/dL (9.8-20.1); Calc. Creatinine Clearance 63 mL/min (70-130); Calcium 9.1 mg/dL (7.8-10.44); Carbon Dioxide 29 mmol/L (23-31); Chloride 100 mmol/L (98-107); Glucose 161 mg/dL (83-110); Magnesium 2.3 mg/dL (1.6-2.6); Potassium 3.6 mmol/L (3.5-5.1); Sodium 140 mmol/L (136-145)
[2020-05-09] MEDS ORDERED: Nitroglycerin 0.4 MG TAB (25 Tab Bottle) SL PRN (05:25)
[2020-05-09 05:30] LABS: Troponin I 0.031 ng/mL (< 0.028)
[2020-05-09 06:07] LABS: Bacteria/HPF None Seen HPF (None Seen); Bilirubin Negative (Negative); Blood, Urine Negative (Negative); Clarity Clear (Clear); Glucose, Urine (Dipstick) Normal (Negative); Ketone, Urine Negative (Negative); Leukocyte 250 Leu/uL (Negative); Nitrite Negative (Negative); Protein, Urine (Dipstick) Negative (Neg-Trace); RBC/HPF 0-3 HPF (0-3); Specific Gravity, Urine 1.008 (1.002-1.036); Squamous Epithelial 0-3 HPF (0-3); Urobilinogen Normal mg/dL (Less than 2)
[2020-05-09 06:15] LABS: Urine Culture Reflex Yes Yes
[2020-05-09] MEDS ORDERED: Metolazone 5 MG TAB PO SCH (08:00)
[2020-05-09] MEDS: Carvedilol 25 MG TAB PO SCH (08:46)
[2020-05-09] MEDS: Brimonidine Tartrate 0.2% Ophth Soln 5 ml Bottle EA EYE SCH ×2 (08:47→13:07)
[2020-05-09] MEDS: busPIRone HCl 5 MG TAB PO SCH ×2 (08:48→14:48)
[2020-05-09] MEDS: Gabapentin 300 MG CAP PO SCH ×2 (08:48→14:46)
[2020-05-09] MEDS: Pregabalin 50 MG CAP PO SCH ×2 (08:50→14:48)
[2020-05-09] MEDS ORDERED: Aspirin 81 mg Enteric Coated Tablet PO SCH (09:00)
[2020-05-09] MEDS ORDERED: Clopidogrel Bisulfate 75 MG TAB PO SCH (09:00)
[2020-05-09] MEDS ORDERED: Amlodipine 5 MG TAB PO SCH ×2 (09:00→12:00)
[2020-05-09] MEDS ORDERED: FLUoxetine HCl 20 MG CAP PO SCH (09:00)
[2020-05-09] MEDS ORDERED: guaiFENesin ER 600 MG TAB PO SCH ×2 (10:45→21:00)
[2020-05-09] MEDS ORDERED: Lidocaine 5% Patch TD SCH (11:00)
[2020-05-09 15:09] VITALS: TEMP 98.4
[2020-05-09 16:34] VITALS: BP 154/66
[2020-05-09] MEDS ORDERED: Budesonide 0.25 MG/2 ML NEB INH SCH (18:30)
--- NOTE | 2020-05-09 18:32 | EKG ---
Test Reason : CP Blood Pressure : / mmHG Vent. Rate : 063 BPM Atrial Rate : 063 BPM P-R Int : 190 ms QRS Dur : 204 ms QT Int : 546 ms P-R-T Axes : 037 031 057 degrees QTc Int : 558 ms Electronic ventricular pacemaker When compared with ECG of 07-MAY-2020 15:18, (Unconfirmed) Vent. rate has increased BY 2 BPM Confirmed by SHANTANU ANAYA, . SPedro ([id number]) on 05/09/2020 6:31:57 PM Referred By: AFFRAM Confirmed By:DR. Lee FOURNIER MD
--- NOTE | 2020-05-09 21:11 | PDOC.DS.DS ---
Provider Date of Admission: 05/07/20 19:48 Date of Discharge: 05/09/20 Admitting Provider: Gael Narvaez MD Consultations: Cardiology (Dr. Aaron Medrano) Primary Care Physician: Unknown Course Hospital Course: Discharge Diagnoses: 1. Acute CHF exacerbation 2. Moderate aortic stenosis 3. RENETTA 4. Costochondritis 5. Bronchitis/bronchospasm Brief HPI: THis is a 79 year old female with history of heart failure who presented to the hospital with worsening chest pain on exertion and dyspnea on exertion. She was discharged from [facility] one week prior. THe patient was taking lasix 80 mg in the morning and 40 mg at night. Creatinine was elevated at 1.81. CTA chest showed no CHF. THe patient was admitted for IV diureses. Hospital Course: Acute CHF exacerbation/RENETTA: Troponin increased slightly to 0.041. The patient was given IV 40 mg lasix with no improvement. Her lasix dose was increased to 80 mg IV bid on 05/08 by cardiology. Her creatinine improved to 1.3. ECHO showed normal EF and moderate aortic stenosis, which per patient is chronic. SHe reports having a normal cardiac cath within the past year. The patient ambulated at the time of discharge and had her oxygen saturation was 95% on room air. She will be discharged with lasix 80 mg bid. She should follow up with her cardiolog ist in a week. Memory issues/trembling: patient's family requested neurology consult. It appears the patient had recent CT scans at [facility] and she is already scheduled to undergo neuropsych testing as an outpatient so further workup was not done here. Possible bronchitis: the patient did have some expiratory wheezing in the upper airway. She was given pulmicort and prescribed this on discharge. She was also prescribed albuterol inhaler. 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 Chest pain likely from costochondritis: the patient reported pain while taking a deep breath. SHe was very tender to palpation on your rib cage. She was prescribed lidocaine patch with improvement. Pertinent Studies: Bilateral carotid doppler: no hemodynamically significant stenosis CTA chest: no PE Chest X ray 05/07: no acute process CT head 05/07: left sphenoid sinusitis. Chronic small vessel disease ECHO: moderate aortic stenosis. Diastolic heart failure. Resuscitation Status: 05/07/20 21:32 Resuscitation Status Routine Resuscitation Status: FULL: Full Resuscitation Lab Results: 05/08/20 06:45 05/09/20 03:45 Abnormal Lab Results - Last 48 hrs 05/07/20 22:43: Troponin I 0.041 H 05/08/20 06:45: BUN 28 H, Creatinine 1.37 H 05/08/20 06:45: RBC 3.73 L, Hgb 11.4 L, Hct 33.6 L, Monocytes % 11.0 H, Monocytes # 0.7 H 05/09/20 03:45: BUN 26 H, Creatinine 1.30 H 05/09/20 03:45: Troponin I 0.031 H 05/09/20 04:55: Ur Leukocyte Esterase 250 A, Urine WBC 7-10 A, Urine Culture Reflexed Yes A Vitals: Vital Signs (12 hours) Temp Pulse Pulse Pulse Resp BP BP 05/09/20 15:08 98.4 F 69 18 05/09/20 13:08 66 05/09/20 12:10 66 05/09/20 12:04 66 61 154/66 H 117/56 L 05/09/20 11:03 97.7 F 67 16 BP BP Pulse Ox Pulse Ox Pulse Ox 05/09/20 15:08 121/62 98 05/09/20 13:08 125/58 L 05/09/20 12:10 154/66 H 05/09/20 12:04 97 96 05/09/20 11:03 117/56 L 96 Weight Weight 250 lb 0.067 oz Physical Exam: The patient was seen and examined on the day of discharge. General Appearance: NAD, awake alert Eye: PERRL, anicteric sclera ENT: normocephalic atraumatic, no oropharyngeal lesions Neck: supple, no JVD Respiratory: CTAB, no wheezes, no rales, no ronchi Cardiovascular: RRR, no murmur, no gallops, no rubs Gastrointestinal: soft, non-tender, non-distended, normal bowel sounds Extremities: no cyanosis, no clubbing, no edema Skin: normal turgor, no lesions, no rashes Neurological: cranial nerve grossly intact, normal sensation to touch, no weakness, no focal deficits Musculoskeletal: normal tone, normal strength, no muscle wasting Plan Prescriptions: Furosemide 80 mg PO BID #60 tablet Lidocaine 5% Patch [Lidoderm 5% Patch] 1 patch TD 1100 #30 patch Albuterol Sulfate [Proair Digihaler] 90 mcg IH Q4H PRN #1 aer.pw.bas PRN Reason: Wheezing Budesonide [Pulmicort Neb Solution] 0.25 mg INH BID-RT #1 ampule Home Medications: Medication Instructions Recorded Confirmed Type Carvedilol [Coreg] 25 mg PO BID 08/01/15 05/08/20 History FLUoxetine HCl [Prozac] 40 mg PO QAM 08/01/15 05/08/20 History Amlodipine [Norvasc] 10 mg PO DAILY 03/11/18 05/08/20 History Aspirin 81 mg PO DAILY 03/11/18 05/08/20 History Pramipexole Di-HCl [Pramipexole 0.5 mg PO QPM 03/11/18 05/08/20 History Dihydrochloride] Cyclobenzaprine HCl 5 mg PO TID PRN 04/16/18 05/08/20 History Aluminum & Magnesium Hydroxide 30 ml PO Q4H PRN udcup 04/22/18 05/08/20 Rx [Maalox] glyBURIDE [Micronase] 2.5 mg PO DAILY 09/15/18 05/08/20 History Atorvastatin Calcium 40 mg PO DAILY 05/23/19 05/08/20 History Clopidogrel Bisulfate [Plavix] 75 mg PO DAILY 05/23/19 05/08/20 History Pregabalin 100 mg PO TID 05/23/19 05/08/20 History cloNIDine [Catapres] 0.1 mg PO PRN PRN 05/23/19 05/08/20 History Meclizine HCl [Motion Sickness 25 mg PO TID PRN 05/08/20 05/08/20 History Relief] Mirtazapine 7.5 mg PO HS 05/08/20 05/08/20 History Ranolazine [Ranexa] 1,000 mg PO BID 05/08/20 05/08/20 History SUMAtriptan Succinate [Sumatriptan 50 mg PO Q2HR PRN 05/08/20 05/08/20 History Succinate] busPIRone HCl [Buspar] 5 mg PO TID 05/08/20 05/08/20 History Albuterol Sulfate [Proair 90 mcg IH Q4H PRN #1 aer.pw.bas 05/09/20 Rx Digihaler] Budesonide [Pulmicort Neb Solution] 0.25 mg INH BID-RT #1 ampule 05/09/20 Rx Furosemide 80 mg PO BID #60 tablet 05/09/20 Rx Lidocaine 5% Patch [Lidoderm 5% 1 patch TD 1100 #30 patch 05/09/20 Rx Patch] Allergies: LIZZETTE Inhibitors Allergy (Verified 05/08/20 22:01) codeine Allergy (Verified 05/08/20 22:01) hydrocodone [From [place]] Allergy (Verified 05/08/20 22:01) methocarbamol Allergy (Verified 05/08/20 22:01) Penicillins Allergy (Verified 05/08/20 22:01) Sulfa (Sulfonamide Antibiotics) Allergy (Verified 05/08/20 22:01) tramadol Allergy (Verified 05/08/20 22:01) Activity:: Activity as Tolerated Nourishment:: Heart Healthy Diet Referrals: Naveed Edgar MD [MD Not on Staff] - 7 Days Sundeep Mariano MD [Affiliate] - 7 Days Disposition: HOME Quality CORE MEASURES:: N/A
[2020-05-09] MEDS ORDERED: Transdermal Patch Removal TOP SCH (23:00)
--- NOTE | 2020-05-12 17:32 | EKG ---
Test Reason : SOB/CHEST PAIN Blood Pressure : / mmHG Vent. Rate : 061 BPM Atrial Rate : 060 BPM P-R Int : 000 ms QRS Dur : 200 ms QT Int : 572 ms P-R-T Axes : 000 -70 069 degrees QTc Int : 575 ms AV dual-paced rhythm Abnormal ECG Confirmed by WILLIAM ANAYA, AYE ([id number]), content editor REGIS VALLE ([id number]) on 05/12/2020 5:32:25 PM Referred By: Confirmed By:AYE THOMAS MD
== END 2020-05-09 16:10 | disposition home or self-care (01) ==
LOC: ERS 14:45 → ERHOLD 19:48 → 2NO 05-08 20:19
PROVIDERS: ADMIT Student in an Organized Health Care Education/Training Program; ATTEND Internal Medicine
DX: I11.0 Hypertensive heart disease with heart failure (principal); I50.9 Heart failure, unspecified; I35.0 Nonrheumatic aortic (valve) stenosis; N17.9 Acute kidney failure, unspecified; M94.0 Chondrocostal junction syndrome [Tietze]; J20.9 Acute bronchitis, unspecified; E11.9 Type 2 diabetes mellitus without complications; D64.9 Anemia, unspecified; J32.3 Chronic sphenoidal sinusitis; F41.9 Anxiety disorder, unspecified; F32.9 Major depressive disorder, single episode, unspecified; I25.10 Atherosclerotic heart disease of native coronary artery without angina pectoris; E78.5 Hyperlipidemia, unspecified; R77.8 Other specified abnormalities of plasma proteins; I48.91 Unspecified atrial fibrillation; G25.81 Restless legs syndrome; G89.29 Other chronic pain; M54.9 Dorsalgia, unspecified; E66.9 Obesity, unspecified; Z68.41 Body mass index [BMI] 40.0-44.9, adult; Z79.02 Long term (current) use of antithrombotics/antiplatelets; Z79.82 Long term (current) use of aspirin; Z79.84 Long term (current) use of oral hypoglycemic drugs; Z79.899 Other long term (current) drug therapy; Z88.0 Allergy status to penicillin; Z88.2 Allergy status to sulfonamides; Z88.5 Allergy status to narcotic agent; Z88.8 Allergy status to other drugs, medicaments and biological substances; Z95.0 Presence of cardiac pacemaker; Z95.5 Presence of coronary angioplasty implant and graft; Z20.822 Contact with and (suspected) exposure to COVID-19
CPT/HCPCS: 70450; 71045; 71275; 80048 ×2; 80053; 80061; 81001; 82550; 82962 ×2; 83690; 83735; 83880; 84484 ×4; 85025 ×2; 85379; 87086; 93005 ×2; 93306; 93880; 96374; 97116; 97139 ×3; 99285; U0003; U0005; 36415; 36416; 87635; 93010; 96376; G0378; J1650; J1815; J1940; Q9967

== ENCOUNTER 2020-12-06 10:57 | Outpatient (CLI) | payer MEDICARE | END 2020-12-06 10:58 | disposition home or self-care (01) | LOC: HS RAD 10:57 | PROVIDERS: ATTEND Student in an Organized Health Care Education/Training Program | DX: R41.82 Altered mental status, unspecified (principal) | CPT/HCPCS: 70450 ==

== ENCOUNTER 2023-10-06 06:48 | Emergency (ER) | payer MEDICARE ==
[2023-10-06] MEDS ORDERED: Morphine 4 MG/ML VIAL ONE ×2 (07:08→08:59)
[2023-10-06] MEDS ORDERED: diphenhydrAMINE 50 MG/ML VIAL ONE (07:08)
== END 2023-10-06 09:30 | disposition home or self-care (01) ==
LOC: ERS 06:48
DX: M16.11 Unilateral primary osteoarthritis, right hip (principal); G89.29 Other chronic pain; I11.0 Hypertensive heart disease with heart failure; I50.9 Heart failure, unspecified; E11.9 Type 2 diabetes mellitus without complications; F41.8 Other specified anxiety disorders
CPT/HCPCS: 73502; J1200; J2270; 96372; 96374; 96375